=== PATIENT | male | born 1960 | race American Indian/Alaskan Native ===

== ENCOUNTER 2016-08-25 18:13 | Emergency (ER) | payer MEDICARE ==
[2016-08-25 19:42] LABS: Basophils % (Auto) 0.9 % (0.0-1.8); Eosinophils % (Auto) 1.6 % (0.0-4.3); Hematocrit 37.1 % (35.5-45.6); Hemoglobin 12.5 gm/dl (11.8-15.2); Mean Corpuscular HGB Conc 34 % (32-34); Mean Corpuscular Hemoglobin 30 pg (28-32); Mean Corpuscular Volume 89 fl (84-94); Platelet Count 254 K/mm3 (140-440); Red Blood Count 4.15 M/mm3 (3.65-5.03); Red Cell Distribution Width 16.2 % (13.2-15.2); White Blood Count 9.3 K/mm3 (4.5-11.0)
--- NOTE | 2016-08-25 20:00 | Emergency Department Report ---
ED Headache HPI - General Chief Complaint: Dizziness Stated Complaint: BLURRED VISION/DIZZINESS/WEAKNESS Time Seen by Provider: 08/25/16 19:28 - History of Present Illness Initial Comments: 56-year-old male with history of hypertension, diabetes, prior CVA pursuing today because of bifrontal headache is gone on for one week. Patient states his had headaches in the past and usually seems to improve with medication. This time it does not improved. He has no associated nausea or vomiting, chest pain, shortness breath, palpitations but does complain of some lightheadedness. He's had a prior surgery in his left hip and is complaining about some intermittent numbness in his left lower leg that seems improved with ambulating. Allergies/Adverse Reactions: Allergies Sulfa (Sulfonamide Antibiotics) Allergy (Intermediate, Verified 08/25/16 19:18) Hives codeine Allergy (Verified 06/19/15 20:27) Hives Home Medications: Ambulatory Orders HYDROcodone/APAP 5-325 [Huxford 5/325] 1 each PO Q6HR PRN #20 tablet 06/20/15 Ondansetron [Zofran Odt] 4 mg PO Q6HR PRN #20 tab.rapdis 06/20/15 Amoxicillin/K Clav Tab [Augmentin 875 mg] 1 tab PO Q12HR #10 tab 08/25/16 Butalb/Acetamin/Caff 50-325-40 [Fioricet] 1 tab PO Q6HR PRN #10 tab 08/26/16 ED Review of Systems ROS: Stated complaint: BLURRED VISION/DIZZINESS/WEAKNESS Other details as noted in HPI Comment: All other systems reviewed and negative Constitutional: denies: chills, fever Respiratory: denies: cough Cardiovascular: denies: chest pain, palpitations, dyspnea on exertion Gastrointestinal: denies: nausea, vomiting Genitourinary: denies: dysuria Musculoskeletal: denies: back pain Skin: denies: rash Psychiatric: denies: anxiety ED Past Medical Hx - Past Medical History Previous Medical History?: Yes Hx Hypertension: Yes Hx CVA: Yes Hx Diabetes: Yes Additional medical history: Blood clot around heart - Surgical History Past Surgical History?: Yes Additional Surgical History: Left Hip surgery, Hernia repair - Social History Smoking Status: Current Every Day Smoker Substance Use Type: None - Medications Home Medications: Home Medications Medication Instructions Recorded Confirmed Last Taken Type HYDROcodone/APAP 5-325 [Huxford 1 each PO Q6HR PRN #20 tablet 06/20/15 Unknown Rx 5/325] Ondansetron [Zofran Odt] 4 mg PO Q6HR PRN #20 tab.rapdis 06/20/15 Unknown Rx Amoxicillin/K Clav Tab [Augmentin 1 tab PO Q12HR #10 tab 08/25/16 Unknown Rx 875 mg] Butalb/Acetamin/Caff 50-325-40 1 tab PO Q6HR PRN #10 tab 08/26/16 Unknown Rx [Fioricet] ED Physical Exam - General Limitations: No Limitations General appearance: alert, in no apparent distress - Head Head exam: Present: atraumatic - Eye Eye exam: Present: normal appearance - Respiratory Respiratory exam: Present: normal lung sounds bilaterally. Absent: respiratory distress, wheezes - Cardiovascular Cardiovascular Exam: Present: regular rate, normal rhythm - GI/Abdominal GI/Abdominal exam: Present: soft. Absent: distended, tenderness - Neurological Exam Neurological exam: Present: alert, oriented X3, CN II-XII intact. Absent: motor sensory deficit - Psychiatric Psychiatric exam: Present: normal affect ED Course Vital Signs 08/25/16 08/25/16 08/25/16 19:08 19:10 19:15 Temperature 98.4 F Pulse Rate 56 L 55 L 54 L Pulse Rate [ Lying] Pulse Rate [ Sitting] Pulse Rate [ Standing] Respiratory 22 19 15 Rate Blood Pressure 155/84 167/85 Blood Pressure [Lying] Blood Pressure [Sitting] Blood Pressure [Standing] O2 Sat by Pulse 100 97 98 Oximetry 08/25/16 08/25/16 08/25/16 19:20 19:26 19:30 Temperature Pulse Rate 59 L 57 L 54 L Pulse Rate [ 59 L Lying] Pulse Rate [ 62 Sitting] Pulse Rate [ 69 Standing] Respiratory 13 15 20 Rate Blood Pressure 167/85 167/85 167/85 Blood Pressure 156/89 [Lying] Blood Pressure 147/90 [Sitting] Blood Pressure 165/96 [Standing] O2 Sat by Pulse 100 100 100 Oximetry 08/25/16 08/25/16 08/25/16 19:36 19:40 19:45 Temperature Pulse Rate 57 L 58 L 57 L Pulse Rate [ Lying] Pulse Rate [ Sitting] Pulse Rate [ Standing] Respiratory 18 13 13 Rate Blood Pressure 161/91 161/91 153/94 Blood Pressure [Lying] Blood Pressure [Sitting] Blood Pressure [Standing] O2 Sat by Pulse 99 100 99 Oximetry 08/25/16 08/25/16 08/25/16 19:50 19:55 20:01 Temperature Pulse Rate 58 L 56 L 66 Pulse Rate [ Lying] Pulse Rate [ Sitting] Pulse Rate [ Standing] Respiratory 14 11 L 20 Rate Blood Pressure 165/96 153/94 Blood Pressure [Lying] Blood Pressure [Sitting] Blood Pressure [Standing] O2 Sat by Pulse 100 100 99 Oximetry 08/25/16 08/25/16 08/25/16 21:20 22:02 22:30 Temperature Pulse Rate Pulse Rate [ Lying] Pulse Rate [ Sitting] Pulse Rate [ Standing] Respiratory 20 Rate Blood Pressure 165/96 158/89 Blood Pressure [Lying] Blood Pressure [Sitting] Blood Pressure [Standing] O2 Sat by Pulse 98 99 Oximetry 08/25/16 08/25/16 23:00 23:31 Temperature Pulse Rate 62 Pulse Rate [ Lying] Pulse Rate [ Sitting] Pulse Rate [ Standing] Respiratory 17 Rate Blood Pressure 148/96 164/89 Blood Pressure [Lying] Blood Pressure [Sitting] Blood Pressure [Standing] O2 Sat by Pulse 98 98 Oximetry - Reevaluation(s) Reevaluation #1: 08/25/16 23:51 Patient's symptoms completely resolved, no more headache, CT of the head does show a old infarct as well as acute sinusitis. Repeating EKG right now. Troponin level was negative and other labs were unremarkable. Given that the patient had 2 weeks symptoms will get the patient antibiotics. Reevaluation #2: 08/26/16 00:09 Repeat P EKG shows no significant changes, does not appear to have any significant ST elevations, condition is stable for discharge. - Consultations Consultation #1: 08/25/16 19:[address] Lockwood, materials analyst web content writer, I discussed with him the patient's presentation, exam and EKG. I sent him a copy of EKG. 08/25/16 19:59 Dr. Lockwood called back and states he was underwhelmed by the EKG. Patient also has no chest pain so will not call STEMI. ED Medical Decision Making - Lab Data Result diagrams: 08/25/16 19:37 08/25/16 19:36 - Medical Decision Making EKG shows some J-point elevation in V2, V3, inferior leads seem to have a subtle possible ST elevation without any clear reciprocal ST depression IV, labs, CT of head, chest x-ray Critical care attestation.: If time is entered above; I have spent that time in minutes in the direct care of this critically ill patient, excluding procedure time. ED Disposition Clinical Impression: Sphenoid sinusitis Qualifiers: Chronicity: acute Recurrence: not specified as recurrent Qualified Code(s): J01.30 - Acute sphenoidal sinusitis, unspecified Disposition: DISCHARGED TO HOME OR SELFCARE Is pt being admited?: No Does the pt Need Aspirin: No Condition: Stable Instructions: Sinusitis (ED), Acute Headache (ED) Additional Instructions: Please follow up with the primary care physician in the next 3-5 days. Please also make a follow-up appointment with your materials analyst within the next week. Return to the emergency room immediately if your symptoms worsen significantly or you develop any new symptoms. Prescriptions: Amoxicillin/K Clav Tab [Augmentin 875 mg] 1 tab PO Q12HR #10 tab Butalb/Acetamin/Caff 50-325-40 [Fioricet] 1 tab PO Q6HR PRN #10 tab PRN Reason: Headache Referrals: LILLY OTTO MD [Primary Care Provider] - 3-5 Days Time of Disposition: 00:10
[2016-08-25] MEDS ORDERED: FIORICET PO ONE (20:03)
[2016-08-25 20:28] LABS: Alanine Aminotransferase 7 units/L (7-56); Albumin 3.4 g/dL (3.9-5); Albumin/Globulin Ratio 1.1 %; Alkaline Phosphatase 72 units/L (35-129); Anion Gap 19 mmol/L; BUN/Creatinine Ratio 19.09; Blood Urea Nitrogen 21 mg/dL (9-20); Calcium 8.6 mg/dL (8.4-10.2); Carbon Dioxide 20 mmol/L (22-30); Chloride 100.2 mmol/L (98-107); Glucose 75 mg/dL (75-100); Potassium 5.4 mmol/L (3.6-5.0); Sodium 134 mmol/L (137-145); Total Protein 6.4 g/dL (6.3-8.2)
--- NOTE | 2016-08-25 20:47 | XRay Report ---
FINAL REPORT EXAM: XR CHEST 1V AP HISTORY: ekg changes TECHNIQUE: upright single view chest PRIORS: None. FINDINGS: Cardiac and mediastinal contours are unremarkable. No focal pulmonary infiltrate is identified. No pleural fluid collection seen. Pulmonary vasculature is unremarkable. IMPRESSION: Negative single-view chest
[2016-08-25] MEDS ORDERED: D5/0.45NS 1,000 ML IV SCH (21:00)
[2016-08-25 21:09] LABS: Bilirubin,Urine NEG (Negative); Blood,Urine NEG (Negative); Ketones,Urine NEG (Negative); Leukocyte Esterase,Urine NEG (Negative); Nitrite,Urine NEG (Negative); Urobilinogen,Urine < 2.0 mg/dL (<2.0); WBC,Urine < 1.0 /HPF (0.0-6.0)
--- NOTE | 2016-08-25 21:59 | Cat Scan Report ---
FINAL REPORT EXAM: CT HEAD/BRAIN WO CON HISTORY: headache, prior cva TECHNIQUE: CT head without contrast PRIORS: None. FINDINGS: No acute intra-axial or extra-axial hemorrhage is identified. There is no evidence of midline shift or mass effect. There is generalized prominence of ventricles and sulci largely frontal consistent with moderate parenchymal volume loss. There is more focal hypodensity and volume loss within the right frontal lobe consistent with remote infarct. Fernandes-white matter differentiation is intact. No acute parenchymal abnormalities seen. There are patchy and confluent hypodensities within the supratentorial white matter. Bony calvarium is grossly intact. There is fluid level present within the sphenoid sinus on the right IMPRESSION: Chronic small vessel white matter ischemic change Remote right frontal infarct parenchymal volume loss largely involving the frontal lobes Sphenoid sinusitis which appears acute
[2016-08-26 00:50] VITALS: BP 155/89
== END 2016-08-26 00:45 | disposition home or self-care (01) ==
LOC: ED 18:13
DX: J01.30 Acute sphenoidal sinusitis, unspecified (principal); I10 Essential (primary) hypertension; E11.9 Type 2 diabetes mellitus without complications; F17.200 Nicotine dependence, unspecified, uncomplicated; Z86.73 Personal history of transient ischemic attack (TIA), and cerebral infarction without residual deficits; Z88.2 Allergy status to sulfonamides; Z88.6 Allergy status to analgesic agent
CPT/HCPCS: 36415; 70450; 71010; 80053; 81001; 82962; 83880; 84484; 85025; 93005; 93010; 96360

== ENCOUNTER 2016-11-01 06:47 | Day surgery (SDC) | payer MEDICARE ==
[2016-11-01] MEDS ORDERED: XYLOCAINE 1%/ EPI 1:100,000 INFILTRATI ONE ×2 (11:49→12:38)
[2016-11-01] MEDS: VIGAMOX OD SCH ×3 (11:54→12:06)
[2016-11-01] MEDS: TETRACAINE 0.5% OD SCH ×3 (11:54→12:05)
--- NOTE | 2016-11-01 12:10 | Anesthesia Day of Surgery ---
Anesthesia Day of Surgery - Day of Surgery Patient Examined: Yes Patient H&P Reviewed: Yes Patient is NPO: Yes Beta Blockers: Yes
--- NOTE | 2016-11-01 12:10 | Anesthesia Consultation ---
Anesthesia Consult and Med Hx Date of service: 11/01/16 - Airway Anesthetic Teeth Evaluation: Poor ROM Head & Neck: Adequate Mental/Hyoid Distance: Adequate Mallampati Class: Class II Intubation Access Assessment: Probably Good - Pulmonary Exam CTA: Yes - Cardiac Exam Cardiac Exam: RRR - Pre-Operative Health Status ASA Pre-Surgery Classification: ASA3 Proposed Anesthetic Plan: MAC - Pulmonary Hx Smoking: Yes (SINCE AGE 17 1PKG LASTS 2 DAYS) - Cardiovascular System Hx Hypertension: Yes - Central Nervous System CVA: Yes (SEE ABOVE) - Other Systems Hx Cancer: No
[2016-11-01] MEDS ORDERED: VERSED ONE (12:28)
[2016-11-01] MEDS ORDERED: SUBLIMAZE ONE ×2 (12:28)
--- NOTE | 2016-11-01 13:02 | Short Stay Summary ---
Short Stay Documentation Date of service: 11/01/16 - History H&P: obtained from office - Allergies and Medications Current Medications: Allergies codeine Allergy (Verified 06/19/15 20:27) Hives Active Medications Moxifloxacin HCl (Vigamox) 1 drops OD Q5MIN KARLEY Stop: 11/01/16 23:59 Last Admin: 11/01/16 12:06 Dose: 1 drops Tetracaine HCl (Tetracaine 0.5%) 1 drops OD Q5M KARLEY Stop: 11/01/16 23:59 Last Admin: 11/01/16 12:05 Dose: 1 drops - Brief post op/procedure progress note Date of procedure: 11/01/16 Pre-op diagnosis: pyogenic granuloma right eye Post-op diagnosis: same Procedure: Excision of pyogenic granuloma right eye Anesthesia: MAC, local Surgeon: INDIGO PABLO Estimated blood loss: minimal Specimen disposition: to lab (pyogenic granuloma) Condition: stable - Disposition Condition at discharge: Good Disposition: DC-01 TO HOME OR SELFCARE - Discharge Diagnoses (1) Pyogenic granuloma of right conjunctiva Status: Resolved Short Stay Discharge Plan Follow up with: LILLY OTTO MD [Primary Care Provider] - 7 Days
--- NOTE | 2016-11-01 13:05 | Operative Report ---
Operative Report Operative Report: PREOPERATIVE DIAGNOSIS: Pyogenic granuloma the conjunctiva right eye POSTOPERATIVE DIAGNOSIS: same OPERATIVE PROCEDURE: Excision of pyogenic granuloma right eye SURGEON: aPtricia Hernández M.D. ELECTRIC TAPE SLITTER SURGEON: none ANESTHESIA: Monitored anesthesia care OWNER/PHOTOGRAPHER: COMPLICATIONS: None ALLERGIES: Codeine PROGNOSIS: Excellent INDICATIONS FOR SURGERY: Distortion of vision from the lesion. Without treatment , permanent visual loss is expected. OPERATIVE REPORT: The patient was taken into the preoperative area and then sedated and monitored by Anesthesia. The patient was prepped by applying a Betadine scrub to the periorbital area, the adjacent cheek, and the forehead. The prepped areas were dried with sterile gauze. The patient was draped, and a speculum was placed between the eyelids. 2% lidocaine was injected below the body of the granuloma. A cut-down was made through the body of the granuloma to bare sclera. The dissection was then carried towards the limbus, elevating up the granuloma. Moderate bleeding was encountered and treated with cautery. The granuloma was densely scarred into the underlying stroma, making the dissection process difficult to perform. A superficial dissection plane was made in a few areas. The mass of fibrous growth was then excised from the limbus. MEDICATIONS APPLIED AT END OF SURGERY: DISCHARGE SUMMARY: The patient was released in stable condition. The patient and those with the patient were given a written sheet of postoperative instructions and counseling on any abnormal laboratory studies. They are to call immediately for difficulties.
[2016-11-01] MEDS ORDERED: PRED FORTE 1% OD ONE (13:13)
--- NOTE | 2016-11-01 13:26 | Post Anesthesia Evaluation ---
- Post Anesthesia Evaluation Patient Participated: Yes Airway Patent: Yes Stable Respiratory Function: Yes Nausea/Vomiting: No Temp > 96.8F: Yes Pain Manageable: Yes Adequeate Hydration: Yes Anesthesia Complications: No Block Receding Appropriately: Not Applicable Patient on Ventilator: No
[2016-11-01] MEDS ORDERED: PRED FORTE 1% OD SCH (14:00)
[2016-11-01 14:54] VITALS: BP 151/74
== END 2016-11-01 13:51 | disposition home or self-care (01) ==
LOC: OR 06:47
DX: L98.0 Pyogenic granuloma (principal); D18.09 Hemangioma of other sites; M19.90 Unspecified osteoarthritis, unspecified site; E11.9 Type 2 diabetes mellitus without complications; I10 Essential (primary) hypertension; F17.210 Nicotine dependence, cigarettes, uncomplicated; Z91.040 Latex allergy status; Z88.5 Allergy status to narcotic agent; Z88.2 Allergy status to sulfonamides; Z88.8 Allergy status to other drugs, medicaments and biological substances; Z86.73 Personal history of transient ischemic attack (TIA), and cerebral infarction without residual deficits
CPT/HCPCS: 68130; 82962; 88305; J2250; J3010; 88304

== ENCOUNTER 2016-11-15 09:27 | Day surgery (SDC) | payer MEDICARE ==
[~2016-11-15 09:27] MED LIST: TETRACAINE 0.5% OS SCH
[2016-11-15] MEDS: VIGAMOX OS SCH ×3 (10:25→10:40)
[2016-11-15] MEDS: AK-Dilate OS SCH ×3 (10:25→10:40)
[2016-11-15] MEDS: MYDRIACYL OS SCH ×3 (10:25→10:40)
--- NOTE | 2016-11-15 10:36 | Anesthesia Consultation ---
Anesthesia Consult and Med Hx Date of service: 11/15/16 - Airway Anesthetic Teeth Evaluation: Poor ROM Head & Neck: Adequate Mental/Hyoid Distance: Adequate Mallampati Class: Class II Intubation Access Assessment: Probably Good - Pulmonary Exam CTA: Yes - Cardiac Exam Cardiac Exam: RRR - Pre-Operative Health Status ASA Pre-Surgery Classification: ASA3 Proposed Anesthetic Plan: General - Pulmonary Hx Smoking: Yes (SINCE AGE 17 1PKG LASTS 2 DAYS) - Cardiovascular System Hx Hypertension: Yes - Central Nervous System CVA: Yes (SEE ABOVE) - Endocrine Hx Non-Insulin Dependent Diabetes: Yes - Other Systems Hx Cancer: No - Additional Comments Anesthesia Medical History Comments: NAC previously. Right side weakness from CVA, which was about 10 years ago. Poor dentition.
--- NOTE | 2016-11-15 10:39 | Anesthesia Day of Surgery ---
Anesthesia Day of Surgery - Day of Surgery Patient Examined: Yes Patient H&P Reviewed: Yes Patient is NPO: Yes
[2016-11-15] MEDS ORDERED: SUBLIMAZE ONE (10:59)
[2016-11-15] MEDS ORDERED: VERSED ONE (10:59)
--- NOTE | 2016-11-15 11:49 | Short Stay Summary ---
Short Stay Documentation Date of service: 11/15/16 - History H&P: obtained from office - Allergies and Medications Current Medications: Allergies codeine Allergy (Verified 06/19/15 20:27) Hives latex Adverse Reaction (Intermediate, Verified 11/01/16 14:43) Hives antioxidant multivitamin combo. no. [From I-Caps] Adverse Reaction (Verified 14:41) Rash docosahexanoic acid [From I-Caps] Adverse Reaction (Verified 11/01/16 14:43) Rash PT STATES HANDS BLISTERED, RASH, ITCHING eicosapentaenoic acid [From I-Caps] Adverse Reaction (Verified 11/01/16 14:41) Rash lutein [From I-Caps] Adverse Reaction (Verified 11/01/16 14:41) Rash omega-3 fatty acids [From I-Caps] Adverse Reaction (Verified 11/01/16 14:41) Rash Sulfa (Sulfonamide Antibiotics) Adverse Reaction (Verified 11/01/16 14:41) Rash zeaxanthin [From I-Caps] Adverse Reaction (Verified 11/01/16 14:41) Rash Home Medications Medication Instructions Recorded Confirmed Last Taken Type Clopidogrel Bisulfate [Plavix] 75 mg PO DAILY 11/01/16 11/09/16 11/09/16 History Colesevelam [Welchol] 625 mg PO AC 11/01/16 11/09/16 11/14/16 History Esomeprazole Magnesium [NexIUM] 40 mg PO QDAY 11/01/16 11/09/16 11/14/16 History Ezetimibe [Zetia] 10 mg PO DAILY 11/01/16 11/09/16 11/14/16 History Gabapentin [Neurontin] 300 mg PO Q8HR 11/01/16 11/09/16 11/14/16 History Latanoprost 0.005% 1 drop OU DAILY 11/01/16 11/09/16 11/14/16 History Metoprolol [Lopressor] 25 mg PO BID 11/01/16 11/09/16 11/14/16 23:00 History amLODIPine [Norvasc] 5 mg PO DAILY 11/01/16 11/15/16 11/14/16 23:00 History metFORMIN 1,000 mg PO BID 11/01/16 11/09/16 11/14/16 History Active Medications Moxifloxacin HCl (Vigamox) 1 drops OS Q5MIN KARLEY Stop: 11/17/16 06:01 Last Admin: 11/15/16 10:40 Dose: 1 drops Phenylephrine HCl (Ak-Dilate) 1 drops OS Q5MIN KARLEY Stop: 11/17/16 06:01 Last Admin: 11/15/16 10:40 Dose: 1 drops Prednisolone Acetate (Pred Forte 1%) 1 drops OS QID KARLEY Tetracaine HCl (Tetracaine 0.5%) 1 drops OS ONCE KARLEY Stop: 11/15/16 23:59 Last Admin: 11/15/16 10:25 Dose: 1 drops Tropicamide (Mydriacyl) 1 drops OS Q5MIN KARLEY Stop: 11/17/16 06:01 Last Admin: 11/15/16 10:40 Dose: 1 drops - Brief post op/procedure progress note Date of procedure: 11/15/16 Pre-op diagnosis: left cataract Procedure: Phacoemulsification with intraocular lens insertion left eye Anesthesia: MAC Surgeon: INDIGO PABLO Estimated blood loss: none Pathology: none Condition: stable - Disposition Condition at discharge: Good Disposition: DC-01 TO HOME OR SELFCARE - Discharge Diagnoses (1) Cataract Status: Resolved Qualifiers: Cataract type: age-related Age-related cataract type: nuclear Infantile/ juvenile cataract type: I Traumatic cataract type: T Complicated cataract type: C Secondary cataract type: S Laterality: left Qualified Code(s): H25.12 - Age-related nuclear cataract, left eye Short Stay Discharge Plan Follow up with: LILLY OTTO MD [Primary Care Provider] - 7 Days
--- NOTE | 2016-11-15 11:49 | Operative Report ---
Operative Report Operative Report: PATIENT'S NAME: DATE OF : DATE OF SURGERY: 11/15/2016 PREOPERATIVE DIAGNOSIS: Cataract left eye POSTOPERATIVE DIAGNOSIS: Same OPERATIVE PROCEDURE: Phacoemulsification with intraocular lens implantation, left eye SURGEON: Patricia Hernández M.D. HOSPITAL UNIT CLERK SURGEON: Deirdre Lens: [id number] 21.5 D ANESTHESIA: Monitored anesthesia care in combination with topical and intracameral anesthesia because of the established specific risk of reflux, arrhythmias, or anxiety attacks associated with ocular manipulation, as well as the difficulty of the general repair mechanic to manage such potentially catastrophic events while simultaneously attempting to complete the surgical procedure and was deemed necessary for the patient's safety to have an Impregnator Helper present during the procedure whenever possible. An Impregnator Helper was utilized to regulate the intravenous sedation of the patient so the patient was cooperative yet not asleep in order for the patient to successfully maintain fixation of the eye on the operating light of the microscope. COMPLICATIONS: No surgical complications No blood loss. ALLERGIES: Codeine latex multivitamin, PROGNOSIS: Excellent INDICATIONS FOR SURGERY: The patient is undergoing surgery in the hopes of eliminating or improving these visual difficulties. PROCEDURE: After arriving at the surgery center, the patient was given topical anesthetic and dilating drops, as noted in the record. The patient was then taken into the operating room and given more anesthetic drops. The eyelids , lashes, and lid margins were scrubbed with Betadine solution, and the patient was draped. The Nurse Impregnator Helper administered IV sedation and monitored the patient during the procedure. The eye was then fixated with a 0.12, and a stab incision was made in the peripheral clear cornea into the anterior chamber. This was made on my left side. Viscoelastic was next used to fill the anterior chamber. The eye was once again fixated with the 0.12 forceps and a keratome was used make an incision in clear cornea peripherally on my right hand side temporally. The capsule forceps were used to open the central anterior capsule and then make a continuous round capsulotomy. Hydrodissection was carried out utilizing a cannula and balanced salt solution to delineate the cortical material from the capsule and the nucleus from the cortical material. The phaco tip was introduced into the eye and used to remove the anterior cortical material in the area of the capsulotomy. Then the phaco tip was buried into the nucleus, and a chopping instrument was introduced into the eye and used to provide countertraction in the nucleus between this instrument and the phaco tip fracturing the nucleus. This procedure was repeated multiple times, providing multiple small segments of the lens, and then the phaco tip was used to remove each of these segments. An I/A tip was then used to remove the remaining cortex. The anterior chamber was refilled with viscoelastic. An one-piece, acrylic intraocular lens was then placed into an inserting cartridge. The tip of the inserting cartridge was introduced into the keratome incision and into the anterior chamber. The implant was gently advanced through the cartridge and into the eye, where it unfolded, and both haptics were placed in the capsular bag, where it centered nicely and appeared to be well fixated. After placement of the intraocular lens, the I~and~A handpiece was placed back into the eye and used to remove the viscoelastic, including viscoelastic that was behind the optic of the intraocular lens. The anterior chamber was then filled with balanced salt solution, and hydration of the wound was used to cause swelling of the wound and more appropriate watertight closure. When the wound was found to be firm, the patient was asked to comment on how bright the light was. If there was no light perception at all or if the light was substantially dimmer than during the rest of the surgery, the amount of fluid in the eye was decompressed to lower the intraocular pressure until the patient could see the bright light again. This was done to avoid any damage or decreased blood flow to the optic nerve. MEDICATIONS APPLIED AT END OF SURGERY: One drop of Pred Forte and Vigamox The patient was given a shield to wear at night and was instructed not to rub or push on the eye. DISCHARGE SUMMARY: The patient was released in stable condition. The patient and those with the patient were given a written sheet of postoperative instructions and counseling on any abnormal laboratory studies. The patient is to see us tomorrow for follow-up in the office and is to call immediately for any difficulties. Patricia Hernández M.D. Date
[2016-11-15] MEDS ORDERED: PRED FORTE 1% ONE (11:57)
[2016-11-15 13:29] VITALS: BP 132/74
[2016-11-15] MEDS ORDERED: PRED FORTE 1% OS SCH (14:00)
--- NOTE | 2016-11-15 17:27 | Post Anesthesia Evaluation ---
- Post Anesthesia Evaluation Patient Participated: Yes Airway Patent: Yes Stable Respiratory Function: Yes Nausea/Vomiting: No Temp > 96.8F: Yes Pain Manageable: Yes Adequeate Hydration: Yes Anesthesia Complications: No
== END 2016-11-15 13:00 | disposition home or self-care (01) ==
LOC: OR 09:27
DX: E11.36 Type 2 diabetes mellitus with diabetic cataract (principal); M19.90 Unspecified osteoarthritis, unspecified site; I10 Essential (primary) hypertension; F17.210 Nicotine dependence, cigarettes, uncomplicated; Z86.73 Personal history of transient ischemic attack (TIA), and cerebral infarction without residual deficits; Z88.5 Allergy status to narcotic agent; Z88.2 Allergy status to sulfonamides; Z79.01 Long term (current) use of anticoagulants; Z88.8 Allergy status to other drugs, medicaments and biological substances; Z91.040 Latex allergy status; Z79.84 Long term (current) use of oral hypoglycemic drugs; Z79.899 Other long term (current) drug therapy
CPT/HCPCS: 66984; 82962; J2250; J3010; V2632

== ENCOUNTER 2016-11-22 06:26 | Day surgery (SDC) | payer MEDICARE ==
[2016-11-22] MEDS ORDERED: TETRACAINE 0.5% OD PRN (07:00)
[2016-11-22] MEDS ORDERED: NACL BACTERIOSTATIC INFILTRATI ONE (07:28)
[2016-11-22] MEDS: MYDRIACYL OD SCH ×3 (07:34→07:52)
[2016-11-22] MEDS: VIGAMOX OD SCH ×3 (07:34→07:52)
[2016-11-22] MEDS: AK-Dilate OD SCH ×3 (07:34→07:52)
--- NOTE | 2016-11-22 07:50 | Anesthesia Consultation ---
Anesthesia Consult and Med Hx Date of service: 11/22/16 - Airway Anesthetic Teeth Evaluation: Poor ROM Head & Neck: Adequate Mental/Hyoid Distance: Adequate Mallampati Class: Class II Intubation Access Assessment: Probably Good - Pulmonary Exam CTA: Yes - Cardiac Exam Cardiac Exam: RRR - Pre-Operative Health Status ASA Pre-Surgery Classification: ASA3 Proposed Anesthetic Plan: MAC - Pulmonary Hx Smoking: Yes (SINCE AGE 17 1PKG LASTS 2 DAYS) - Cardiovascular System Hx Hypertension: Yes - Central Nervous System Hx Neuromuscular Disorder: Yes (Right side weakness from CVA, >10 years ago) CVA: Yes Hx Psychiatric Problems: No - Gastrointestinal Hx Gastroesophageal Reflux Disease: No - Endocrine Hx Non-Insulin Dependent Diabetes: Yes - Hematic Hx Anemia: No Hx Sickle Cell Disease: No - Other Systems Hx Alcohol Use: No Hx Substance Use: No Hx Cancer: No Hx Obesity: No
--- NOTE | 2016-11-22 07:51 | Anesthesia Day of Surgery ---
Anesthesia Day of Surgery - Day of Surgery Patient Examined: Yes Patient H&P Reviewed: Yes Patient is NPO: Yes
[2016-11-22] MEDS ORDERED: SUBLIMAZE ONE (08:14)
[2016-11-22] MEDS ORDERED: VERSED ONE (08:14)
--- NOTE | 2016-11-22 09:19 | Operative Report ---
Operative Report Operative Report: PATIENT'S NAME: DATE OF : DATE OF SURGERY: 11/22/2016 PREOPERATIVE DIAGNOSIS: Cataract right eye POSTOPERATIVE DIAGNOSIS: Same OPERATIVE PROCEDURE: Phacoemulsification with intraocular lens implantation, right eye SURGEON: Patricia Hernández M.D. SENIOR OUTSIDE SALES REPRESENTATIVE SURGEON: Deirdre Lens: [id number] 21.0 D ANESTHESIA: Monitored anesthesia care in combination with topical and intracameral anesthesia because of the established specific risk of reflux, arrhythmias, or anxiety attacks associated with ocular manipulation, as well as the difficulty of the donor services team leader to manage such potentially catastrophic events while simultaneously attempting to complete the surgical procedure and was deemed necessary for the patient's safety to have an Digital Sales Executive present during the procedure whenever possible. An Digital Sales Executive was utilized to regulate the intravenous sedation of the patient so the patient was cooperative yet not asleep in order for the patient to successfully maintain fixation of the eye on the operating light of the microscope. COMPLICATIONS: No surgical complications No blood loss. ALLERGIES: Latex codeine PROGNOSIS: Excellent INDICATIONS FOR SURGERY: The patient is undergoing surgery in the hopes of eliminating or improving these visual difficulties. PROCEDURE: After arriving at the surgery center, the patient was given topical anesthetic and dilating drops, as noted in the record. The patient was then taken into the operating room and given more anesthetic drops. The eyelids , lashes, and lid margins were scrubbed with Betadine solution, and the patient was draped. The Nurse Digital Sales Executive administered IV sedation and monitored the patient during the procedure. The eye was then fixated with a 0.12, and a stab incision was made in the peripheral clear cornea into the anterior chamber. This was made on my left side. Viscoelastic was next used to fill the anterior chamber. The eye was once again fixated with the 0.12 forceps and a keratome was used make an incision in clear cornea peripherally on my right hand side temporally. The capsule forceps were used to open the central anterior capsule and then make a continuous round capsulotomy. Hydrodissection was carried out utilizing a cannula and balanced salt solution to delineate the cortical material from the capsule and the nucleus from the cortical material. The phaco tip was introduced into the eye and used to remove the anterior cortical material in the area of the capsulotomy. Then the phaco tip was buried into the nucleus, and a chopping instrument was introduced into the eye and used to provide countertraction in the nucleus between this instrument and the phaco tip fracturing the nucleus. This procedure was repeated multiple times, providing multiple small segments of the lens, and then the phaco tip was used to remove each of these segments. An I/A tip was then used to remove the remaining cortex. The anterior chamber was refilled with viscoelastic. An one-piece, acrylic intraocular lens was then placed into an inserting cartridge. The tip of the inserting cartridge was introduced into the keratome incision and into the anterior chamber. The implant was gently advanced through the cartridge and into the eye, where it unfolded, and both haptics were placed in the capsular bag, where it centered nicely and appeared to be well fixated. After placement of the intraocular lens, the I~and~A handpiece was placed back into the eye and used to remove the viscoelastic, including viscoelastic that was behind the optic of the intraocular lens. The anterior chamber was then filled with balanced salt solution, and hydration of the wound was used to cause swelling of the wound and more appropriate watertight closure. When the wound was found to be firm, the patient was asked to comment on how bright the light was. If there was no light perception at all or if the light was substantially dimmer than during the rest of the surgery, the amount of fluid in the eye was decompressed to lower the intraocular pressure until the patient could see the bright light again. This was done to avoid any damage or decreased blood flow to the optic nerve. MEDICATIONS APPLIED AT END OF SURGERY: One drop of Pred Forte and Vigamox The patient was given a shield to wear at night and was instructed not to rub or push on the eye. DISCHARGE SUMMARY: The patient was released in stable condition. The patient and those with the patient were given a written sheet of postoperative instructions and counseling on any abnormal laboratory studies. The patient is to see us tomorrow for follow-up in the office and is to call immediately for any difficulties. Patricia Hernández M.D. Date
--- NOTE | 2016-11-22 09:20 | Short Stay Summary ---
Short Stay Documentation Date of service: 11/22/16 - History H&P: obtained from office - Allergies and Medications Current Medications: Allergies latex Allergy (Intermediate, Verified 11/21/16 11:45) Hives antioxidant multivitamin combo. no. [From I-Caps] Allergy (Verified 11/21/16 11: 45) Rash codeine Allergy (Verified 06/19/15 20:27) Hives docosahexanoic acid [From I-Caps] Allergy (Verified 11/21/16 11:45) Rash PT STATES HANDS BLISTERED, RASH, ITCHING eicosapentaenoic acid [From I-Caps] Allergy (Verified 11/21/16 11:45) Rash lutein [From I-Caps] Allergy (Verified 11/21/16 11:45) Rash omega-3 fatty acids [From I-Caps] Allergy (Verified 11/21/16 11:45) Rash Sulfa (Sulfonamide Antibiotics) Allergy (Verified 11/21/16 11:45) Rash zeaxanthin [From I-Caps] Allergy (Verified 11/21/16 11:45) Rash Home Medications Medication Instructions Recorded Confirmed Last Taken Type Clopidogrel Bisulfate [Plavix] 75 mg PO DAILY 11/01/16 11/21/16 11/09/16 History Colesevelam [Welchol] 625 mg PO AC 11/01/16 11/21/16 11/14/16 History Esomeprazole Magnesium [NexIUM] 40 mg PO QDAY 11/01/16 11/21/16 11/14/16 History Ezetimibe [Zetia] 10 mg PO DAILY 11/01/16 11/21/16 11/14/16 History Gabapentin [Neurontin] 300 mg PO Q8HR 11/01/16 11/21/16 11/14/16 History Latanoprost 0.005% 1 drop OU DAILY 11/01/16 11/21/16 11/14/16 History Metoprolol [Lopressor] 25 mg PO BID 11/01/16 11/21/16 11/14/16 23:00 History amLODIPine [Norvasc] 5 mg PO DAILY 11/01/16 11/21/16 11/14/16 23:00 History metFORMIN 1,000 mg PO BID 11/01/16 11/21/16 11/14/16 History Active Medications Moxifloxacin HCl (Vigamox) 1 drops OD Q5MIN [facility] Stop: 11/24/16 07:01 Last Admin: 11/22/16 07:52 Dose: 1 drops Phenylephrine HCl (Ak-Dilate) 1 drops OD Q5MIN [facility] Stop: 11/24/16 07:01 Last Admin: 11/22/16 07:52 Dose: 1 drops Prednisolone Acetate (Pred Forte 1%) 1 drops OD QID [facility] Tetracaine HCl (Tetracaine 0.5%) 1 drops OD Q5M PRN PRN Reason: Analgesia Last Admin: 11/22/16 07:34 Dose: 1 drops Tropicamide (Mydriacyl) 1 drops OD Q5MIN [facility] Stop: 11/24/16 07:01 Last Admin: 11/22/16 07:52 Dose: 1 drops - Brief post op/procedure progress note Date of procedure: 11/22/16 Pre-op diagnosis: right cataract Post-op diagnosis: same Procedure: Phacoemulsification with intraocular lens insertion right eye Anesthesia: MAC Surgeon: INDIGO PABLO Pathology: none Condition: stable - Disposition Condition at discharge: Good Disposition: DC-01 TO HOME OR SELFCARE - Discharge Diagnoses (1) Cataract Status: Resolved Qualifiers: Cataract type: age-related Age-related cataract type: nuclear Infantile/ juvenile cataract type: I Traumatic cataract type: T Complicated cataract type: C Secondary cataract type: S Laterality: right Qualified Code(s): H25.11 - Age-related nuclear cataract, right eye Short Stay Discharge Plan Follow up with: LILLY OTTO MD [Primary Care Provider] - 7 Days Forms: [facility]
[2016-11-22] MEDS ORDERED: PRED FORTE 1% OD SCH (10:00)
[2016-11-22] MEDS ORDERED: MYDRIACYL OD SCH (10:00)
[2016-11-22 11:13] VITALS: BP 136/87
== END 2016-11-22 09:40 | disposition home or self-care (01) ==
LOC: OR 06:26
DX: E11.36 Type 2 diabetes mellitus with diabetic cataract (principal); I10 Essential (primary) hypertension; M19.90 Unspecified osteoarthritis, unspecified site; F17.210 Nicotine dependence, cigarettes, uncomplicated; Z86.73 Personal history of transient ischemic attack (TIA), and cerebral infarction without residual deficits; Z88.5 Allergy status to narcotic agent; Z88.2 Allergy status to sulfonamides; Z88.8 Allergy status to other drugs, medicaments and biological substances; Z91.040 Latex allergy status; Z79.01 Long term (current) use of anticoagulants; Z79.899 Other long term (current) drug therapy
CPT/HCPCS: 66984; 82962; J2250; J3010; V2632

== ENCOUNTER 2019-05-18 11:19 | Observation (INO) | payer MEDICARE ==
--- NOTE | 2019-05-18 11:47 | Emergency Department Report ---
Blank Doc - Documentation Documentation: 59-year-old male that presents with abdominal pain and n/v. This initial assessment/diagnostic orders/clinical plan/treatment(s) is/are subject to change based on patient's health status, clinical progression and re- assessment by fellow clinical providers in the ED. Further treatment and workup at subsequent clinical providers discretion. Patient/guardians urged not to elope from the ED as their condition may be serious if not clinically assessed and managed. Initial orders include: 1- Patient sent to [facility] for further evaluation and treatment 2- labs 3- UA
[2019-05-18 13:18] LABS: Albumin 3.4 g/dL (3.9-5); Calcium 9.1 mg/dL (8.4-10.2)
[2019-05-18 13:27] LABS: Basophils # (Auto) 0.1 K/mm3 (0.0-0.1); Basophils % (Auto) 0.6 % (0.0-1.8); Eosinophils # (Auto) 0.1 K/mm3 (0.0-0.4); Eosinophils % (Auto) 1.4 % (0.0-4.3); Hematocrit 39.4 % (35.5-45.6); Hemoglobin 13.2 gm/dl (11.8-15.2); Lymphocytes # (Auto) 2.7 K/mm3 (1.2-5.4); Lymphocytes % (Auto) 34.1 % (13.4-35.0); Mean Corpuscular HGB Conc 34 % (32-34); Mean Corpuscular Volume 90 fl (84-94); Monocytes # (Auto) 0.4 K/mm3 (0.0-0.8); Monocytes % (Auto) 5.4 % (0.0-7.3); Platelet Count 222 K/mm3 (140-440); Red Blood Count 4.39 M/mm3 (3.65-5.03)
[2019-05-18] MEDS ORDERED: ONDANSETRON 4 MG/2 ML INJ IV ONE (13:49)
[2019-05-18] MEDS ORDERED: FAMOTIDINE 20 MG/2 ML INJ IV ONE (13:49)
[2019-05-18] MEDS ORDERED: diphenhydrAMINE 50 MG/ML VIAL IV ONE (13:51)
[2019-05-18] MEDS ORDERED: MORPHINE 2 MG/1 ML INJ IV ONE (13:51)
[2019-05-18] MEDS ORDERED: SODIUM BICARB 8.4% 50 MEQ/50 ML SYRINGE IV ONE (15:17)
[2019-05-18] MEDS ORDERED: INSULIN REGULAR, HUMAN 100 UNITS/1 ML IV ONE (15:17)
[2019-05-18] MEDS ORDERED: SODIUM POLYSTYRENE 15 GM/60 ML ORAL LIQD PO ONE (15:17)
[2019-05-18] MEDS ORDERED: DEXTROSE 50% IN WATER (25GM) 50 ML SYRINGE IV ONE ×2 (15:17→18:33)
--- NOTE | 2019-05-18 15:17 | Cat Scan Report ---
CT ABDOMEN AND PELVIS WITHOUT CONTRAST HISTORY: Epigastric pain. COMPARISON: None TECHNIQUE: Routine abdominal and pelvic CT exam performed without contrast. Lack of intravenous cont rast limits evaluation of the vascular and solid organs.. All CT scans at this location are performed using CT dose reduction for ALARA by means of automated exposure control. FINDINGS: CT ABDOMEN: Lung Bases: No significant abnormality. Liver: No significant abnormality. Biliary: No significant abnormality. The gallbladder is normally distended with no stones. Normal luke e ducts. Spleen: No significant abnormality. Unenlarged. Pancreas: Pancreatic tail calcifications and moderate enlargement of the pancreatic duct (6 mm). No p eripancreatic fluid. No pancreatic pseudocyst. Adrenals: No significant abnormality. Kidneys: No significant abnormality. The renal collecting systems and ureters are nondilated. No urin patricia calculus. Lymphatics: No lymphadenopathy. Vasculature: Extensive calcification of the abdominal aorta and iliac arteries. Bowel/Peritoneum: No significant abnormality. No free air. No free fluid. Appendix not visualized. No pericecal inflammation. CT PELVIC: : No significant abnormality. Lymphatics: No lymphadenopathy. Osseous Structures: No aggressive appearing osseous lesions. Status post left hip replacement with no rmal appearance of the prosthesis. Additional Findings: None IMPRESSION: 1. No acute findings. 2. Chronic calcific pancreatitis involving the pancreatic tail. No signs of acute pancreatitis. 3. Constipation extensive stool throughout the colon. Signer Name: Hoang Barajas MD Signed: 05/18/2019 3:12 PM Workstation Name: [id number]
--- NOTE | 2019-05-18 16:31 | Emergency Department Report ---
ED General Adult HPI - General Chief complaint: Medical Clearance Stated complaint: HEART ISSUE Time Seen by Provider: 05/18/19 11:46 Source: patient Mode of arrival: Ambulatory Limitations: No Limitations - History of Present Illness Initial comments: Patient is a 59-year-old F [place] male with a past medical history of stage III renal disease diabetes hypertension and chronic pancreatitis who is presenting with epigastric pain. Patient states that he has had pain in abdomen since yesterday with nausea and vomiting. Pain radiates to his back. States pain is 8 out of 10 in severity. Patient was seen today by his solution consultant and was sent to the emergency department. Patient was seen by his document design specialist last week and had a slightly elevated potassium level. Patient been taking oral sodium bicarb. Patient states that his abdominal discomfort is worsened since taking this medication. - Related Data Home Medications Medication Instructions Recorded Confirmed Last Taken Clopidogrel Bisulfate [Plavix] 75 mg PO DAILY 11/01/16 11/21/16 11/21/16 Colesevelam [Welchol] 625 mg PO AC 11/01/16 11/21/16 11/21/16 Esomeprazole Magnesium [NexIUM] 40 mg PO QDAY 11/01/16 11/22/16 11/21/16 Ezetimibe [Zetia] 10 mg PO DAILY 11/01/16 11/21/16 11/21/16 Gabapentin [Neurontin] 300 mg PO Q8HR 11/01/16 11/21/16 11/21/16 Latanoprost 0.005% 1 drop OU DAILY 11/01/16 11/21/16 11/21/16 Metoprolol [Lopressor] 25 mg PO BID 11/01/16 11/21/16 11/21/16 amLODIPine 5 mg PO DAILY 11/01/16 11/21/16 11/21/16 metFORMIN 1,000 mg PO BID 11/01/16 11/21/16 11/21/16 Allergies Allergy/AdvReac Type Severity Reaction Status Date / Time latex Allergy Intermediate Hives Verified 11/21/16 11:45 antioxidant multivitamin Allergy Rash Verified 11/21/16 11:45 combo. no. [From I-Caps] codeine Allergy Hives Verified 06/19/15 20:27 docosahexanoic acid Allergy Rash Verified 11/21/16 11:45 [From I-Caps] eicosapentaenoic acid Allergy Rash Verified 11/21/16 11:45 [From I-Caps] lutein [From I-Caps] Allergy Rash Verified 11/21/16 11:45 omega-3 fatty acids Allergy Rash Verified 11/21/16 11:45 [From I-Caps] Sulfa (Sulfonamide Allergy Rash Verified 11/21/16 11:45 Antibiotics) zeaxanthin [From I-Caps] Allergy Rash Verified 11/21/16 11:45 ED Review of Systems ROS: Stated complaint: HEART ISSUE Other details as noted in HPI Comment: All other systems reviewed and negative ED Past Medical Hx - Past Medical History Previous Medical History?: Yes Hx Hypertension: Yes Hx CVA: Yes Hx Diabetes: Yes Hx GERD: Yes Hx Sickle Cell Disease: No Hx Arthritis: Yes (LEFT HIP SURGERY) Additional medical history: Blood clot around heart - Surgical History Past Surgical History?: Yes Additional Surgical History: Left Hip surgery, Hernia repair - Social History Smoking Status: Never Smoker Substance Use Type: None - Medications Home Medications: Home Medications Medication Instructions Recorded Confirmed Last Taken Type Clopidogrel Bisulfate [Plavix] 75 mg PO DAILY 11/01/16 11/21/16 11/21/16 History Colesevelam [Welchol] 625 mg PO AC 11/01/16 11/21/16 11/21/16 History Esomeprazole Magnesium [NexIUM] 40 mg PO QDAY 11/01/16 11/22/16 11/21/16 History Ezetimibe [Zetia] 10 mg PO DAILY 11/01/16 11/21/16 11/21/16 History Gabapentin [Neurontin] 300 mg PO Q8HR 11/01/16 11/21/16 11/21/16 History Latanoprost 0.005% 1 drop OU DAILY 11/01/16 11/21/16 11/21/16 History Metoprolol [Lopressor] 25 mg PO BID 11/01/16 11/21/16 11/21/16 History amLODIPine 5 mg PO DAILY 11/01/16 11/21/16 11/21/16 History metFORMIN 1,000 mg PO BID 11/01/16 11/21/16 11/21/16 History ED Physical Exam - General Limitations: No Limitations General appearance: alert, in no apparent distress - Head Head exam: Present: atraumatic, normocephalic - Eye Eye exam: Present: normal appearance - ENT ENT exam: Present: mucous membranes moist - Neck Neck exam: Present: normal inspection - Respiratory Respiratory exam: Present: normal lung sounds bilaterally. Absent: respiratory distress, wheezes, rales, rhonchi - Cardiovascular Cardiovascular Exam: Present: regular rate, normal rhythm, normal heart sounds. Absent: systolic murmur, diastolic murmur, rubs, gallop - GI/Abdominal GI/Abdominal exam: Present: soft, tenderness (Epigastric tenderness palpation), normal bowel sounds. Absent: distended, guarding, rebound - Rectal Rectal exam: Present: deferred - Extremities Exam Extremities exam: Present: normal inspection - Back Exam Back exam: Present: normal inspection - Neurological Exam Neurological exam: Present: alert, oriented X3 - Psychiatric Psychiatric exam: Present: normal affect, normal mood - Skin Skin exam: Present: warm, dry, intact, normal color. Absent: rash ED Course Vital Signs 05/18/19 05/18/19 11:32 15:00 Temperature 97.8 F Pulse Rate 54 L Respiratory 16 18 Rate Blood Pressure 174/82 O2 Sat by Pulse 98 98 Oximetry ED Medical Decision Making - Lab Data Result diagrams: 05/18/19 11:59 05/18/19 Unknown Lab Results 05/18/19 05/18/19 05/18/19 Range/Units 11:59 11:59 Unknown WBC 8.0 (4.5-11.0) K/mm3 RBC 4.39 (3.65-5.03) M/mm3 Hgb 13.2 (11.8-15.2) gm/dl Hct 39.4 (35.5-45.6) % MCV 90 (84-94) fl MCH 30 (28-32) pg MCHC 34 (32-34) % RDW 16.0 H (13.2-15.2) % Plt Count 222 (140-440) K/mm3 Lymph % (Auto) 34.1 (13.4-35.0) % [place] % (Auto) 5.4 (0.0-7.3) % Eos % (Auto) 1.4 (0.0-4.3) % Baso % (Auto) 0.6 (0.0-1.8) % Lymph # 2.7 (1.2-5.4) K/mm3 [place] # 0.4 (0.0-0.8) K/mm3 Eos # 0.1 (0.0-0.4) K/mm3 Baso # 0.1 (0.0-0.1) K/mm3 Seg Neutrophils % 58.5 (40.0-70.0) % Seg Neutrophils # 4.7 (1.8-7.7) K/mm3 Sodium 134 L (137-145) mmol/L Potassium 6.0 H 6.2 H* (3.6-5.0) mmol/L Chloride 103.5 (98-107) mmol/L Carbon Dioxide 18 L (22-30) mmol/L Anion Gap 19 mmol/L BUN 22 H (9-20) mg/dL Creatinine 1.8 H (0.8-1.5) mg/dL Estimated GFR 47 ml/min BUN/Creatinine Ratio 12 % Glucose 161 H (75-100) mg/dL Calcium 9.1 (8.4-10.2) mg/dL Total Bilirubin 0.20 (0.1-1.2) mg/dL AST 20 (5-40) units/L ALT 18 (7-56) units/L Alkaline Phosphatase 82 (35-129) units/L Total Protein 7.2 (6.3-8.2) g/dL Albumin 3.4 L (3.9-5) g/dL Albumin/Globulin Ratio 0.9 % Lipase 84 H (13-60) units/L - EKG Data -: EKG Interpreted by [place] EKG shows normal: sinus rhythm, axis, intervals, QRS complexes, ST-T waves Rate: bradycardia (51) - EKG Data Interpretation: normal EKG - Radiology Data Patient: ISIAH NEWBY MR#: [id number] : 1960 Acct:[id number] Age/Sex: 59 / M ADM Date: 05/18/19 Loc: ED Attending Dr: Ordering Physician: FLORECITA SHARP MD Date of Service: 05/18/19 Procedure(s): CT abdomen pelvis wo con Accession Number(s): [id number] cc: FLORECITA SHARP MD CT ABDOMEN AND PELVIS WITHOUT CONTRAST HISTORY: Epigastric pain. COMPARISON: None TECHNIQUE: Routine abdominal and pelvic CT exam performed without contrast. Lack of intravenous contrast limits evaluation of the vascular and solid organs.. All CT scans at t his location are performed using CT dose reduction for ALARA by means of automated exposure control. FINDINGS: CT ABDOMEN: Lung Bases: No significant abnormality. Liver: No significant abnormality. Biliary: No significant abnormality. The gallbladder is normally distended with no stones. Normal bile ducts. Spleen: No significant abnormality. Unenlarged. Pancreas: Pancreatic tail calcifications and moderate enlargement of the pancreatic duct (6 mm). No peripancreatic fluid. No pancreatic pseudocyst. Adrenals: No significant abnormality. Kidneys: No significant abnormality. The renal collecting systems and ureters are nondilated. No urinary calculus. Lymphatics: No lymphadenopathy. Vasculature: Extensive calcification of the abdominal aorta and iliac arteries. Bowel/Peritoneum: No significant abnormality. No free air. No free fluid. Appendix not visualized. No pericecal inflammation. CT PELVIC: : No significant abnormality. Lymphatics: No lymphadenopathy. Osseous Structures: No aggressive appearing osseous lesions. Status post left hip replacement with normal appearance of the prosthesis. Additional Findings: None IMPRESSION: 1. No acute findings. 2. Chronic calcific pancreatitis involving the pancreatic tail. No signs of acute pancreatitis. 3. Constipation extensive stool throughout the colon. Signer Name: Hoang Barajas MD Signed: 05/18/2019 3:12 PM Workstation Name: [id number] Transcribed By: REF Dictated By: HOANG BARAJAS MD Electronically Authenticated By: HOANG BARAJAS MD Signed Date/Time: 05/18/19 1512 - Medical Decision Making Patient is a 59-year-old gentleman who is presenting with epigastric discomfort. Patient does have a history of chronic pancreatitis is likely having some discomfort from his pancreatitis. Patient is potassium level is elevated at this time patient was given IV sodium bicarb Kayexalate insulin and D50. Patient will be admitted for observation Critical care attestation.: If time is entered above; I have spent that time in minutes in the direct care of this critically ill patient, excluding procedure time. ED Disposition Clinical Impression: Acute on chronic pancreatitis, Hyperkalemia Renal failure Qualifiers: Renal failure chronicity: chronic Chronic kidney disease stage: stage 3 (moderate) Qualified Code(s): N18.3 - Chronic kidney disease, stage 3 (moderate) Disposition: OP ADMIT IP TO THIS HOSP Is pt being admited?: Yes Does the pt Need Aspirin: No Condition: Stable Referrals: PRIMARY CARE, [Primary Care Provider] - 3-5 Days Time of Disposition: 16:44
[2019-05-18] MEDS ORDERED: ONDANSETRON 4 MG/2 ML INJ IV PRN (16:50)
[2019-05-18] MEDS ORDERED: ACETAMINOPHEN 325 MG TAB PO PRN (16:50)
[2019-05-18] MEDS ORDERED: ALBUTEROL 2.5 MG/3 ML NEBU IH PRN (16:50)
--- NOTE | 2019-05-18 16:50 | History and Physical Report ---
History of Present Illness Chief complaint: My stomach is hurting History of present illness: 59-year-old male with CKD, DM, HTN, chronic pancreatitis, GERD, severe malnutrition presents to ED for evaluation. Patient states that he has experienced pain in his abdomen over the past 1 day with persistent symptoms over the same timeframe. Patient states that his pain is 810/10, initially intermittent, but has been become constant, is associated with multiple episodes of vomiting as well as concomitant nausea, radiates to the back, is worsened with meals. 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 Patient transported to [facility] via private vehicle. Patient seen and evaluated in the emergency department. Lab and imaging studies reviewed. Patient found to have acute kidney injury with superimposed chronic kidney disease, hyperkalemia, metabolic acidosis, and abdominal pain secondary to chronic pancreatitis. Patient denies fever, chills, chest pain, palpitation, shortness of breath, bright red blood per rectum, ingestion of food/water from new or different sources, bright red blood per rectum, hemoptysis, skin rash, or recent ill contacts. Patient placed in observation status and admitted to medical floor. Patient treated with IV fluid resuscitation therapy and supportive care. Past History Past Medical History: diabetes, GERD, hypertension, stroke Past Surgical History: hernia repair, total hip replacement Social history: single. denies: smoking Family history: diabetes, hypertension Medications and Allergies Allergies Allergy/AdvReac Type Severity Reaction Status Date / Time latex Allergy Intermediate Hives Verified 11/21/16 11:45 antioxidant multivitamin Allergy Rash Verified 11/21/16 11:45 combo. no. [From I-Caps] codeine Allergy Hives Verified 06/19/15 20:27 docosahexanoic acid Allergy Rash Verified 11/21/16 11:45 [From I-Caps] eicosapentaenoic acid Allergy Rash Verified 11/21/16 11:45 [From I-Caps] lutein [From I-Caps] Allergy Rash Verified 11/21/16 11:45 omega-3 fatty acids Allergy Rash Verified 11/21/16 11:45 [From I-Caps] Sulfa (Sulfonamide Allergy Rash Verified 11/21/16 11:45 Antibiotics) zeaxanthin [From I-Caps] Allergy Rash Verified 11/21/16 11:45 Home Medications Medication Instructions Recorded Confirmed Last Taken Type Clopidogrel Bisulfate [Plavix] 75 mg PO DAILY 11/01/16 11/21/16 11/21/16 History Colesevelam [Welchol] 625 mg PO AC 11/01/16 11/21/16 11/21/16 History Esomeprazole Magnesium [NexIUM] 40 mg PO QDAY 11/01/16 11/22/16 11/21/16 History Ezetimibe [Zetia] 10 mg PO DAILY 11/01/16 11/21/16 11/21/16 History Gabapentin [Neurontin] 300 mg PO Q8HR 11/01/16 11/21/16 11/21/16 History Latanoprost 0.005% 1 drop OU DAILY 11/01/16 11/21/16 11/21/16 History Metoprolol [Lopressor] 25 mg PO BID 11/01/16 11/21/16 11/21/16 History amLODIPine 5 mg PO DAILY 11/01/16 11/21/16 11/21/16 History metFORMIN 1,000 mg PO BID 11/01/16 11/21/16 11/21/16 History Review of Systems Constitutional: no weight loss, no weight gain, no fever, no chills Ears, nose, mouth and throat: no ear pain, no ear discharge, no tinnitis, no nose pain, no nasal congestion, no nasal discharge, no sinus pressure Cardiovascular: no chest pain, no orthopnea, no palpitations, no rapid/irregular heart beat, no edema, no lightheadedness Respiratory: no cough, no cough with sputum, no hemoptysis, no shortness of breath Gastrointestinal: abdominal pain, nausea, vomiting, no hematemesis, no BRBPR, no melena, no hematochezia, no loss of appetite, no heartburn Genitourinary Male: no hematuria, no flank pain, no discharge, no urinary frequency, no urinary hesitancy Rectal: no pain, no incontinence, no bleeding Musculoskeletal: no neck stiffness, no neck pain, no low back pain, no redness of joints Integumentary: no rash, no pruritis, no sores, no wounds Neurological: no head injury, no transient paralysis, no parathesias, no tingling, no syncope, no ataxia Psychiatric: no anxiety, no change in sleep habits, no insomnia, no hypersomnia, no change in appetite, no change in libido, no suicidal ideation Endocrine: no cold intolerance, no excessive thirst, no polydipsia, no polyuria, no nocturia, no excessive sweating Hematologic/Lymphatic: no easy bruising, no lymphadenopathy, no lymphedema Allergic/Immunologic: no allergic rhinitis, no wheezing, no persistent infections, no anaphylaxis Exam - Constitutional Vitals: Temp Pulse Resp BP Pulse Ox 97.8 F 54 L 18 174/82 98 05/18/19 11:32 05/18/19 11:32 05/18/19 15:00 05/18/19 11:32 05/18/19 15:00 General appearance: Present: mild distress, cachectic - EENT Eyes: Present: PERRL ENT: hearing intact, clear oral mucosa - Neck Neck: Present: supple, normal ROM - Respiratory Respiratory effort: normal Respiratory: bilateral: CTA - Cardiovascular Heart Sounds: Present: S1 & S2. Absent: rub, click - Extremities Extremities: pulses symmetrical, No edema Peripheral Pulses: within normal limits - Abdominal General gastrointestinal: Present: soft, non-tender, non-distended, normal bowel sounds Male genitourinary: Present: normal - Integumentary Integumentary: Present: clear, warm, dry - Musculoskeletal Musculoskeletal: gait normal, strength equal bilaterally - Psychiatric Psychiatric: appropriate mood/affect, intact judgment & insight - Neurologic Neurologic: CNII-XII intact, moves all extremities Results - Labs CBC & Chem 7: 05/18/19 11:59 05/18/19 Unknown Labs: Abnormal lab results 05/18/19 05/18/19 05/18/19 Range/Units 11:59 11:59 Unknown RDW 16.0 H (13.2-15.2) % Sodium 134 L (137-145) mmol/L Potassium 6.0 H 6.2 H* (3.6-5.0) mmol/L Carbon Dioxide 18 L (22-30) mmol/L BUN 22 H (9-20) mg/dL Creatinine 1.8 H (0.8-1.5) mg/dL Glucose 161 H (75-100) mg/dL Albumin 3.4 L (3.9-5) g/dL Lipase 84 H (13-60) units/L Assessment and Plan - Patient Problems (1) ISH (acute kidney injury) Current Visit: Yes Status: Acute Plan to address problem: IV fluid resuscitation therapy, monitor urine output every shift, strict I's/O, avoid nephrotoxic agents, supportive care. (2) Severe malnutrition Current Visit: Yes Status: Acute Plan to address problem: Encourage increased p.o. intake, dietary supplementation, supportive care (3) Acidosis Current Visit: Yes Status: Acute Plan to address problem: IV fluid resuscitation therapy, IV bicarbonate therapy, repeat BMP in a.m. (4) Diabetes Current Visit: Yes Status: Acute Plan to address problem: Consistent carbohydrate diet, sliding scale insulin therapy, Accu-Chek, hypoglycemia protocol. (5) HTN (hypertension) Current Visit: Yes Status: Acute Qualifiers: Hypertension type: essential hypertension Qualified Code(s): I10 - Essential (primary) hypertension Plan to address problem: Monitor blood pressure every shift, supportive care. Continue medical management. (6) GERD (gastroesophageal reflux disease) Current Visit: Yes Status: Acute Qualifiers: Esophagitis presence: without esophagitis Qualified Code(s): K21.9 - Gastro-esophageal reflux disease without esophagitis Plan to address problem: PPI therapy, supportive care. (7) Acute on chronic pancreatitis Current Visit: Yes Status: Acute Plan to address problem: Bowel rest, IV fluid resuscitation therapy, CT abdomen and pelvis, advance diet as tolerated. Blood alcohol level. (8) DVT prophylaxis Current Visit: Yes Status: Acute Plan to address problem: SCD to bilateral lower extremities while in bed, patient is ambulatory.
[2019-05-18 17:29] LABS: Bilirubin,Urine NEG (Negative); Blood,Urine SM (Negative); Color,Urine Yellow (Yellow); Urobilinogen,Urine < 2.0 mg/dL (<2.0); WBC,Urine < 1.0 /HPF (0.0-6.0)
[2019-05-18] MEDS: METOPROLOL TARTRATE 25 MG TAB PO SCH (23:09)
[2019-05-18] MEDS ORDERED: DEXTROSE 5% IN WATER 1,000 ML IV SCH (23:45)
[2019-05-19] MEDS: INSULIN LISPRO 100 UNIT/ML SUB-Q SCH ×4 (00:53→14:02)
[2019-05-19] MEDS ORDERED: SODIUM CHLORIDE 0.45% 1000 ML 1,000 ML IV SCH (01:00)
[2019-05-19] MEDS: DEXTROSE 50% IN WATER (25GM) 50 ML SYRINGE IV PRN ×2 (04:05→04:26)
[2019-05-19 04:34] LABS: Hematocrit 35.7 % (35.5-45.6); Mean Corpuscular HGB Conc 34 % (32-34); Mean Corpuscular Volume 88 fl (84-94); Platelet Count 208 K/mm3 (140-440); Red Blood Count 4.05 M/mm3 (3.65-5.03)
[2019-05-19 04:56] LABS: Alanine Aminotransferase 17 units/L (7-56); Albumin 3.4 g/dL (3.9-5); BUN/Creatinine Ratio 13; Blood Urea Nitrogen 20 mg/dL (9-20); Calcium 8.6 mg/dL (8.4-10.2); Hemolysis Index 1
[2019-05-19] MEDS ORDERED: D5W/0.45% NACL 1,000 ML IV SCH (05:00)
[2019-05-19 05:48] LABS: Basophils % (Manual) 0 % (0.0-1.8); Total Cells Counted 100
[2019-05-19 06:19] LABS: Burr Cells 1+
[2019-05-19 06:20] LABS: Platelet Estimate Consistent w Auto
[2019-05-19] MEDS: COLESEVELAM 625 MG TAB PO SCH ×2 (08:21→13:44)
[2019-05-19] MEDS: METOPROLOL TARTRATE 25 MG TAB PO SCH (09:12)
[2019-05-19] MEDS ORDERED: PANTOPRAZOLE 40 MG TAB PO SCH (10:00)
[2019-05-19] MEDS ORDERED: CLOPIDOGREL 75 MG TAB PO SCH (10:00)
[2019-05-19] MEDS ORDERED: amLODIPine 5 MG TAB PO SCH ×2 (10:00)
[2019-05-19] MEDS ORDERED: POLYETHYLENE GLYCOL 3350 17 GM POWDER PO SCH (10:00)
[2019-05-19] MEDS ORDERED: LATANOPROST 0.005% OU SCH (10:00)
[2019-05-19] MEDS ORDERED: EZETIMIBE 10 MG TAB PO SCH (10:00)
[2019-05-19] MEDS ORDERED: DOCUSATE SODIUM 100 MG/10 ML ORAL LIQD PO SCH (10:00)
[2019-05-19] MEDS ORDERED: NON-FORMULARY EACH (Esomeprazole Magnesium [Nexium] 40 MG) PO SCH (10:00)
[2019-05-19] MEDS ORDERED: MINERAL OIL ENEMA 133 ML PR ONE (11:00)
[2019-05-19 12:39] VITALS: BP 163/80
--- NOTE | 2019-05-19 13:21 | Discharge Summary ---
Providers - Providers Date of Admission: 05/18/19 16:50 Date of discharge: 05/19/19 Attending physician: ZENON REDDY Primary care physician: SHIP/REC/DOC CONTROL Hospitalization Condition: Stable Pertinent studies: CT abdomen/pelvis Hospital course: 59-year-old male with CKD, DM, HTN, chronic pancreatitis, GERD, presents to ED for evaluation of his abdomen over the past 1 day. Patient seen and evaluated in the emergency department. Lab and imaging studies reviewed. Patient found to have acute kidney injury with superimposed chronic kidney disease, hyperkalemia, metabolic acidosis, and abdominal pain secondary to chronic pancreatitis and severe constipation. Patient was placed on IV fluids, given stool softener, CT abdomen pelvis showed no sign of acute pancreatitis. His hyperkalemia resolved, creatinine level trended down, had a large bowel movement with stool softener. He was tolerating diet and clinically improved. Patient was then discharged home in stable condition with outpatient follow-up. Discharge diagnosis and management: /Abdominal pain, due to severe constipation -resolved Had large bowel movement after giving stool softener Abdominal pain might also be contributed by chronic pancreatitis / ISH (acute kidney injury), likely vasomotor nephropathy, also have h/o CKD Given IV fluid resuscitation therapy, creatinine was stable on discharge Patient will continue outpatient follow-up with his PCP /Hyperkalemia, potassium was 5.2 on admission, resolved with IV fluid hydration / Diabetes mellitus type II WITH HYPOGLYCEMIC EPISODES Recommended consistent carbohydrate diet, AND TO MONITOR BG / HTN (hypertension), uncontrolled Continue metoprolol and norvasc - increased to 10mg daily / GERD (gastroesophageal reflux disease) PPI therapy, supportive care. / Chronic pancreatitis No sign of acute pancreatitis on CT abdomen and pelvis Continue supportive care /Morbid obesity, counseled for diet and exercise for weight reduction as outpatient as tolerated Patient does not have malnutrition / DVT prophylaxis SCD to bilateral lower extremities while in bed, patient is ambulatory. Disposition: - TO HOME OR SELFCARE Time spent for discharge: 34 minutes Core Measure Documentation - Palliative Care Palliative Care/ Comfort Measures: Not Applicable - Core Measures Any of the following diagnoses?: none Exam - Constitutional Vitals: Temp Pulse Resp BP Pulse Ox 98.5 F 61 18 153/80 95 05/19/19 11:55 05/19/19 11:55 05/19/19 11:55 05/19/19 11:55 05/19/19 11:55 General appearance: Present: no acute distress, well-nourished - EENT Eyes: Present: PERRL ENT: hearing intact, clear oral mucosa - Neck Neck: Present: supple, normal ROM - Respiratory Respiratory effort: normal Respiratory: bilateral: CTA - Cardiovascular Heart Sounds: Present: S1 & S2. Absent: rub, click - Extremities Extremities: pulses symmetrical, No edema Peripheral Pulses: within normal limits - Abdominal General gastrointestinal: Present: soft, non-tender, non-distended, normal bowel sounds - Integumentary Integumentary: Present: clear, warm, dry - Musculoskeletal Musculoskeletal: gait normal, strength equal bilaterally - Psychiatric Psychiatric: appropriate mood/affect, intact judgment & insight - Neurologic Neurologic: CNII-XII intact, moves all extremities Plan Activity: advance as tolerated Weight Bearing Status: Weight Bear as Tolerated Diet: diabetic, renal Special Instructions: record blood sugar diary Follow up with: PRIMARY CARE, [Primary Care Provider] - 3-5 Days Prescriptions: amLODIPine 10 mg PO DAILY #30 tablet
[2019-05-19] MEDS ORDERED: LATANOPROST 0.005% OPHTH SOLN 2.5 ML OU SCH (18:00)
== END 2019-05-19 15:30 | disposition home or self-care (01) ==
LOC: ED 11:19 → 3A 16:50
PROVIDERS: ADMIT Internal Medicine; ATTEND Internal Medicine
DX: N17.9 Acute kidney failure, unspecified (principal); E43 Unspecified severe protein-calorie malnutrition; E87.2 Acidosis; E87.5 Hyperkalemia; I12.9 Hypertensive chronic kidney disease with stage 1 through stage 4 chronic kidney disease, or unspecified chronic kidney disease; N18.9 Chronic kidney disease, unspecified; E11.22 Type 2 diabetes mellitus with diabetic chronic kidney disease; K21.9 Gastro-esophageal reflux disease without esophagitis; K85.90 Acute pancreatitis without necrosis or infection, unspecified; M19.90 Unspecified osteoarthritis, unspecified site; K86.1 Other chronic pancreatitis; Z98.890 Other specified postprocedural states; Z96.641 Presence of right artificial hip joint; Z96.642 Presence of left artificial hip joint; Z86.73 Personal history of transient ischemic attack (TIA), and cerebral infarction without residual deficits; Z79.84 Long term (current) use of oral hypoglycemic drugs
CPT/HCPCS: 36415; 74176; 80053; 81001; 82962; 83690; 84132; 85007; 85025; 93005; 93010; 96372; 96374; 96375; 96376; 99285; 99406; G0378; J1200; J2405; J7030; 80320; G0480; J1815; J2270; J7070

== ENCOUNTER 2020-03-11 16:02 | Observation (INO) | payer OTHER, MEDICARE ==
--- NOTE | 2020-03-11 17:09 | Event Note ---
ED Screening Note Date of service: 03/11/20 Time: 17:08 ED Screening Note: Patient complains of left knee pain after an injury yesterday at his doctor's office Temperature noted to be oral 99.8, on repeat temp is noted to be 100.2 He denies any chest pain, cough, shortness of breath, or body aches/chills This initial assessment/diagnostic orders/clinical plan/treatment(s) is/are subject to change based on patients health status, clinical progression and re- assessment by fellow clinical providers in the ED. Further treatment and workup at subsequent clinical providers discretion. Patient/guardian urged not to elope from the ED as their condition may be serious if not clinically assessed and managed. Initial orders include: Labs X-ray
--- NOTE | 2020-03-11 17:52 | XRay Report ---
LEFT KNEE 3 VIEW(S) INDICATION / CLINICAL INFORMATION: pain after fall COMPARISON: None available. FINDINGS: BONES / JOINT(S): No acute fracture or subluxation. Degenerative osteoarthrosis with minimal chondroc alcinosis in the lateral joint line. Small-moderate effusion. SOFT TISSUES: Moderate atherosclerotic calcification. Mild diffuse edema. ADDITIONAL FINDINGS: None. Signer Name: Wild Marshall MD Signed: 03/11/2020 5:47 PM Workstation Name: [id number]
[2020-03-11 18:20] LABS: Basophils % (Auto) 0.5 % (0.0-1.8); Eosinophils % (Auto) 0.3 % (0.0-4.3); Hematocrit 36.3 % (35.5-45.6); Hemoglobin 12.3 gm/dl (11.8-15.2); Lymphocytes % (Auto) 20.3 % (13.4-35.0); Mean Corpuscular HGB Conc 34 % (32-34); Mean Corpuscular Volume 91 fl (84-94); Monocytes # (Auto) 1.1 K/mm3 (0.0-0.8); Monocytes % (Auto) 11.3 % (0.0-7.3); Platelet Count 213 K/mm3 (140-440); Red Cell Distribution Width 15.4 % (13.2-15.2)
[2020-03-11 18:25] LABS: Albumin 3.2 g/dL (3.9-5); Calcium 8.7 mg/dL (8.4-10.2)
--- NOTE | 2020-03-11 20:17 | XRay Report ---
CHEST 1 VIEW 8:03 PM INDICATION / CLINICAL INFORMATION: Fever. COMPARISON: 08/25/16. FINDINGS: SUPPORT DEVICES: None. HEART / MEDIASTINUM: The heart size and pulmonary vasculature are normal. LUNGS / PLEURA: Mild chronic interstitial lung disease is stable. No acute pulmonary or pleural abnor mality. No pneumothorax. ADDITIONAL FINDINGS: No significant additional findings. IMPRESSION: No acute abnormality or significant change. No evidence of pneumonia. Signer Name: Wild Buckner MD Signed: 03/11/2020 8:13 PM Workstation Name: [id number]
--- NOTE | 2020-03-12 01:10 | Emergency Department Report ---
ED Lower Extremity HPI - General Chief Complaint: Fall Stated Complaint: FELL /LEFT LEG INJURY Time Seen by Provider: 03/12/20 00:43 Source: patient Mode of arrival: Wheelchair Limitations: No Limitations - History of Present Illness Initial Comments: Patient is a 60-year-old male that presents emergency room with complaints of left knee pain. Patient states he was at his doctor's office yesterday and fell and hit his knee on a metal tray. Patient states that he is unable to walk due to the pain. Patient states the pain is a 10 out of 10. Patient states the left knee is swollen. Patient states he put an Luiz bandage on it which makes it feel better. While in triage, the patient was found to be febrile. Patient had his initial temperature 99.8 and then a repeat temperature at 101.2. Patient denies chills. Patient denies chest pain. Patient denies shortness of breath. Patient denies diarrhea. Patient denies nausea vomiting. Patient denies recent travel. Patient denies recent international travel. Patient denies exposure to the novel coronavirus. Patient denies sick contacts. Patient denies loss of smell.. Patient denies cough. Patient denies diarrhea. Patient denies coming in contact with anybody with symptoms of the novel coronavirus. Complaint: knee injury -: Sudden Injury: Knee: Left Type of Injury: blunt Place: other Severity: severe Severity scale (0 -10): 10 Improves With: rest Worsens With: weight bearing, movement, palpation Context: fall, direct blow Associated Symptoms: swelling, unable to bear weight Treatments Prior to Arrival: bandage - Related Data Home Medications Medication Instructions Recorded Confirmed Last Taken Esomeprazole Magnesium [NexIUM] 40 mg PO QDAY 11/01/16 05/19/19 11/21/16 Gabapentin 800 mg PO BID 11/01/16 05/19/19 05/17/19 22:00 Latanoprost 0.005% 1 drop OU DAILY 11/01/16 05/19/19 05/17/19 08:00 Metoprolol [Lopressor TAB] 25 mg PO BID 11/01/16 05/19/19 05/17/19 12:30 Glimepiride 4 mg PO DAILY 05/19/19 05/19/19 Unknown Januvia 100 mg PO DAILY 05/19/19 05/19/19 Unknown NIFEdipine 30 mg PO DAILY 05/19/19 05/19/19 Unknown Pepcid 20 mg PO BID 05/19/19 05/19/19 Unknown Rosuvastatin (Nf) 40 mg PO DAILY 05/19/19 05/19/19 Unknown Previous Rx's Medication Instructions Recorded Last Taken Type amLODIPine 10 mg PO DAILY #30 tablet 05/19/19 Unknown Rx Allergies Allergy/AdvReac Type Severity Reaction Status Date / Time latex Allergy Intermediate Hives Verified 03/11/20 16:25 antioxidant multivitamin Allergy Rash Verified 03/11/20 16:25 combo. no. [From I-Caps] codeine Allergy Hives Verified 03/11/20 16:25 docosahexanoic acid Allergy Rash Verified 03/11/20 16:25 [From I-Caps] eicosapentaenoic acid Allergy Rash Verified 03/11/20 16:25 [From I-Caps] lutein [From I-Caps] Allergy Rash Verified 03/11/20 16:25 omega-3 fatty acids Allergy Rash Verified 03/11/20 16:25 [From I-Caps] Sulfa (Sulfonamide Allergy Rash Verified 03/11/20 16:25 Antibiotics) zeaxanthin [From I-Caps] Allergy Rash Verified 03/11/20 16:25 ED Review of Systems ROS: Stated complaint: FELL /LEFT LEG INJURY Other details as noted in HPI Constitutional: denies: chills, fever Eyes: denies: eye pain, eye discharge, vision change ENT: denies: ear pain, throat pain Respiratory: denies: cough, shortness of breath, wheezing Cardiovascular: denies: chest pain, palpitations Endocrine: no symptoms reported Gastrointestinal: denies: abdominal pain, nausea, diarrhea Genitourinary: denies: urgency, dysuria Musculoskeletal: denies: back pain, joint swelling, arthralgia Skin: denies: rash, lesions Neurological: denies: headache, weakness, paresthesias Psychiatric: denies: anxiety, depression Hematological/Lymphatic: denies: easy bleeding, easy bruising ED Past Medical Hx - Past Medical History Previous Medical History?: Yes Hx Hypertension: Yes Hx CVA: Yes Hx Congestive Heart Failure: No Hx Diabetes: Yes Hx GERD: Yes Hx Sickle Cell Disease: No Hx Arthritis: Yes (LEFT HIP SURGERY) Hx Asthma: No Hx COPD: No Hx Tuberculosis: No Hx HIV: No Additional medical history: Blood clot around heart - Surgical History Past Surgical History?: Yes Additional Surgical History: Left Hip surgery, Hernia repair - Family History Family history: no significant - Social History Smoking Status: Current Every Day Smoker Substance Use Type: None - Medications Home Medications: Home Medications Medication Instructions Recorded Confirmed Last Taken Type Esomeprazole Magnesium [NexIUM] 40 mg PO QDAY 11/01/16 05/19/19 11/21/16 History Gabapentin 800 mg PO BID 11/01/16 05/19/19 05/17/19 22:00 History Latanoprost 0.005% 1 drop OU DAILY 11/01/16 05/19/19 05/17/19 08:00 History Metoprolol [Lopressor TAB] 25 mg PO BID 11/01/16 05/19/19 05/17/19 12:30 History Glimepiride 4 mg PO DAILY 05/19/19 05/19/19 Unknown History Januvia 100 mg PO DAILY 05/19/19 05/19/19 Unknown History NIFEdipine 30 mg PO DAILY 05/19/19 05/19/19 Unknown History Pepcid 20 mg PO BID 05/19/19 05/19/19 Unknown History Rosuvastatin (Nf) 40 mg PO DAILY 05/19/19 05/19/19 Unknown History amLODIPine 10 mg PO DAILY #30 tablet 05/19/19 Unknown Rx ED Physical Exam - General Limitations: No Limitations General appearance: alert, in no apparent distress - Head Head exam: Present: atraumatic, normocephalic - Eye Eye exam: Present: normal appearance - ENT ENT exam: Present: mucous membranes moist - Neck Neck exam: Present: normal inspection - Respiratory Respiratory exam: Present: normal lung sounds bilaterally. Absent: respiratory distress - Cardiovascular Cardiovascular Exam: Present: regular rate, normal rhythm. Absent: systolic murmur, diastolic murmur, rubs, gallop - GI/Abdominal GI/Abdominal exam: Present: soft, normal bowel sounds. Absent: tenderness - Rectal Rectal exam: Present: deferred - Extremities Exam Extremities exam: Present: normal inspection (Except left knee), full ROM (Except left knee), tenderness (To left knee), normal capillary refill, joint swelling (Left knee). Absent: pedal edema, calf tenderness - Back Exam Back exam: Present: normal inspection - Neurological Exam Neurological exam: Present: alert, oriented X3 - Psychiatric Psychiatric exam: Present: normal affect, normal mood - Skin Skin exam: Present: warm, dry, intact, normal color. Absent: rash ED Course Vital Signs 03/11/20 03/12/20 03/12/20 16:27 00:59 01:00 Temperature 99.8 F H Pulse Rate 73 Respiratory 16 Rate Blood Pressure 151/84 182/111 O2 Sat by Pulse 98 100 97 Oximetry 03/12/20 02:00 Temperature 98.6 F Pulse Rate 68 Respiratory Rate Blood Pressure 139/99 O2 Sat by Pulse 99 Oximetry - Reevaluation(s) Reevaluation #1: I discussed all results with patient. I discussed plan of care with patient. Patient agrees with plan of care and admission. Patient to be admitted to the hospitalist service. 03/12/20 02:31 - Consultations Consultation #1: Hospitalist consulted for admission. Hospitalist to admit patient. Hospitalist the patient received the hyperkalemia protocol. 03/12/20 02:31 ED Lower Extremity MDM - Lab Data Result diagrams: 03/11/20 17:41 03/11/20 17:41 - EKG Data -: EKG Interpreted by Id EKG shows normal: sinus rhythm, axis, intervals, QRS complexes, ST-T waves Rate: normal - EKG Data Interpretation: other (Peaked T waves) - Radiology Data Radiology results: report reviewed CHEST 1 VIEW 8:03 PM INDICATION / CLINICAL INFORMATION: Fever. COMPARISON: 08/25/16. FINDINGS: SUPPORT DEVICES: None. HEART / MEDIASTINUM: The heart size and pulmonary vasculature are normal. LUNGS / PLEURA: Mild chronic interstitial lung disease is stable. No acute pulmonary or pleural abnormality. No pneumothorax. ADDITIONAL FINDINGS: No significant additional findings. IMPRESSION: No acute abnormality or significant change. No evidence of pneumonia. LEFT KNEE 3 VIEW(S) INDICATION / CLINICAL INFORMATION: pain after fall COMPARISON: None available. FINDINGS: BONES / JOINT(S): No acute fracture or subluxation. Degenerative osteoarthrosis with minimal chondrocalcinosis in the lateral joint line. Small-moderate effusion. SOFT TISSUES: Moderate atherosclerotic calcification. Mild diffuse edema. ADDITIONAL FINDINGS: None. - Medical Decision Making Patient is a 60-year-old male who presents emergency room with complaints of knee pain after a fall. Patient was found to be febrile and the triage. Patient then had labs which showed acute renal failure and hyperkalemia. Patient's origin of fever is unknown. Patient's chest x-ray is negative. Patient's UA is negative. Patient's white count is negative. Patient given fluids and a hyperkalemia protocol to include insulin, D50 and calcium and Kayexalate. Patient admitted to the hospital service for further evaluation treatment. - Differential Diagnosis Knee contusion, fever, knee pain, Critical Care Time: Yes Critical care time in (mins) excluding proc time.: 35 Critical care attestation.: If time is entered above; I have spent that time in minutes in the direct care of this critically ill patient, excluding procedure time. Critical Care Time: 35 minutes ED Disposition Clinical Impression: Hyperkalemia Acute renal failure Qualifiers: Acute renal failure type: unspecified Qualified Code(s): N17.9 - Acute kidney failure, unspecified Fever Qualifiers: Fever type: unspecified Qualified Code(s): R50.9 - Fever, unspecified Knee pain Qualifiers: Chronicity: acute Laterality: left Qualified Code(s): M25.562 - Pain in left knee Contusion, knee Qualifiers: Encounter type: initial encounter Laterality: left Qualified Code(s): S80.02XA - Contusion of left knee, initial encounter Disposition: OP ADMIT IP TO THIS HOSP Is pt being admited?: Yes Does the pt Need Aspirin: No Condition: Critical Referrals: PRIMARY CARE, [Primary Care Provider] - 3-5 Days Time of Disposition: :
[2020-03-12] MEDS ORDERED: CALCIUM CHLORIDE 1,000 MG/10 ML SYRINGE IV ONE (02:29)
[2020-03-12] MEDS ORDERED: SODIUM POLYSTYRENE 15 GM/60 ML ORAL LIQD PO ONE ×3 (02:29→14:00)
[2020-03-12] MEDS ORDERED: INSULIN REGULAR, HUMAN 100 UNIT/ML 3ML VIAL IV ONE (02:29)
[2020-03-12] MEDS ORDERED: DEXTROSE 50% IN WATER (25GM) 50 ML SYRINGE IV ONE (02:29)
[2020-03-12 02:55] LABS: Bilirubin,Urine NEG (Negative); Blood,Urine NEG (Negative); Color,Urine Yellow (Yellow); Mucus,Urine FEW /HPF; Urobilinogen,Urine < 2.0 mg/dL (<2.0)
[2020-03-12 03:00] LABS: Protein,Urine >500 mg/dL (Negative)
[2020-03-12] MEDS ORDERED: SODIUM CHLORIDE 0.9% 1000 ML 1,000 ML IV ONE (03:19)
[2020-03-12] MEDS ORDERED: SODIUM CHLORIDE 0.9% 1000 ML 1,000 ML ONE (03:19)
--- NOTE | 2020-03-12 05:10 | History and Physical Report ---
History of Present Illness Date of examination: 03/12/20 Date of admission: 03/12/20 03:44 Chief complaint: S/P fall Left Knee pain and edema ISH Hyperkalemia History of present illness: This is [id number] male that presents emergency room with complaints of left k nee pain. Patient states he was at his doctor's office yesterday and fell and hit his knee on a metal tray. Patient states that he is unable to walk due to the pain. Patient seen at bedside in ED on room air. Patient reports past medical history of diabetes, hypertension and hyperlipidemia. He has surgical hx of hip surgery 10 years ago. On assessment, he roports left knee tenderness and pain of 5/10. left knee edema noted-x-ray showed no acute fracture. ED work up showed sodium 136, hemoglobin 12.3, WBC 9.9, patient level 5.8, glucose 112, C02 18 Chest x-ray showed no acute finding Left Knee x-ray showed no fracture. Past History Past Medical History: diabetes, hypertension, hyperlipidemia Past Surgical History: Other (hip surgery 10 years ago) Social history: smoking (smokes about 1 park every 3 days), full code Family history: diabetes (Hypertension in mother and father), hypertension Medications and Allergies Allergies Allergy/AdvReac Type Severity Reaction Status Date / Time latex Allergy Intermediate Hives Verified 03/11/20 16:25 antioxidant multivitamin Allergy Rash Verified 03/11/20 16:25 combo. no. [From I-Caps] codeine Allergy Hives Verified 03/11/20 16:25 docosahexanoic acid Allergy Rash Verified 03/11/20 16:25 [From I-Caps] eicosapentaenoic acid Allergy Rash Verified 03/11/20 16:25 [From I-Caps] lutein [From I-Caps] Allergy Rash Verified 03/11/20 16:25 omega-3 fatty acids Allergy Rash Verified 03/11/20 16:25 [From I-Caps] Sulfa (Sulfonamide Allergy Rash Verified 03/11/20 16:25 Antibiotics) zeaxanthin [From I-Caps] Allergy Rash Verified 03/11/20 16:25 Home Medications Medication Instructions Recorded Confirmed Last Taken Type Esomeprazole Magnesium [NexIUM] 40 mg PO QDAY 11/01/16 05/19/19 11/21/16 History Gabapentin 800 mg PO BID 11/01/16 05/19/19 05/17/19 22:00 History Latanoprost 0.005% 1 drop OU DAILY 11/01/16 05/19/19 05/17/19 08:00 History Metoprolol [Lopressor TAB] 25 mg PO BID 11/01/16 05/19/19 05/17/19 12:30 History Glimepiride 4 mg PO DAILY 05/19/19 05/19/19 Unknown History Januvia 100 mg PO DAILY 05/19/19 05/19/19 Unknown History NIFEdipine 30 mg PO DAILY 05/19/19 05/19/19 Unknown History Pepcid 20 mg PO BID 05/19/19 05/19/19 Unknown History Rosuvastatin (Nf) 40 mg PO DAILY 05/19/19 05/19/19 Unknown History amLODIPine 10 mg PO DAILY #30 tablet 05/19/19 Unknown Rx Active Meds: Active Medications Sodium Chloride (Nacl 0.9% 1000 Ml) 1,000 mls @ 250 mls/hr IV ONCE ONE Stop: 03/12/20 07:18 Last Admin: 03/12/20 03:22 Dose: 250 mls/hr Documented by: Review of Systems Ears, nose, mouth and throat: no ear pain, no ear discharge Cardiovascular: high blood pressure Respiratory: no excessive sputum, no shortness of breath Gastrointestinal: no abdominal pain Genitourinary Male: no dysuria, no hematuria Rectal: no hemorrhoids Musculoskeletal: other (s/p fall on left knee with pain 5/10 on pain scale) Integumentary: sores (left knee soreness and swelling) Neurological: no transient paralysis, no paralysis Psychiatric: no disorientation, no hallucinations Endocrine: no excessive sweating Hematologic/Lymphatic: no easy bleeding, no lymphadenopathy Allergic/Immunologic: no anaphylaxis Exam - Constitutional Vitals: Temp Pulse Resp BP Pulse Ox 98.6 F 59 L 14 153/84 92 03/12/20 02:00 03/12/20 04:01 03/12/20 04:01 03/12/20 04:01 03/12/20 04:01 General appearance: Present: mild distress, other (frail appearing sick patient) - EENT Eyes: Present: PERRL ENT: hearing intact, clear oral mucosa - Neck Neck: Present: supple, normal ROM - Respiratory Respiratory effort: normal Respiratory: bilateral: diminished (tobacco use) - Cardiovascular Heart rate: 59 Heart Sounds: Present: S1 & S2. Absent: rub, click - Extremities Extremities: pulses symmetrical, abnormal (left knee swelling ) Extremity abnormal: edema (left knee area) Peripheral Pulses: within normal limits - Abdominal General gastrointestinal: Present: soft, non-tender, non-distended, normal bowel sounds Male genitourinary: Present: normal - Integumentary Integumentary: Present: clear, warm, dry - Musculoskeletal Musculoskeletal: gait normal, strength equal bilaterally - Psychiatric Psychiatric: appropriate mood/affect, intact judgment & insight, cooperative - Neurologic Neurologic: CNII-XII intact, moves all extremities - Allied Health Allied health notes reviewed: nursing Results - Labs CBC & Chem 7: 03/11/20 17:41 03/11/20 17:41 Labs: Abnormal lab results 03/11/20 03/11/20 03/11/20 Range/Units 17:41 17:41 17:41 RDW 15.4 H (13.2-15.2) % Robeson % (Auto) 11.3 H (0.0-7.3) % Robeson # (Auto) 1.1 H (0.0-0.8) K/mm3 Sodium 136 L (137-145) mmol/L Potassium 5.8 H (3.6-5.0) mmol/L Chloride 109.2 H (98-107) mmol/L Carbon Dioxide 18 L (22-30) mmol/L BUN 26 H (9-20) mg/dL Creatinine 2.0 H (0.8-1.3) mg/dL Glucose 112 H (75-100) mg/dL Lactic Acid 0.60 L (0.7-2.0) mmol/L Albumin 3.2 L (3.9-5) g/dL Assessment and Plan - Patient Problems (1) ISH (acute kidney injury) Current Visit: No Status: Acute Plan to address problem: IV hydration Monitor kidney function Avoid nephrotoxic agents Renal US Hypnotherapist consult (2) Status post fall Current Visit: Yes Status: Acute Plan to address problem: Patient reports a fall with knee pain and swelling X-ray left knee-showed no fracture but edema of soft tissue and effusion pain management PRN (3) Contusion, knee Current Visit: Yes Status: Acute Qualifiers: Encounter type: initial encounter Laterality: left Qualified Code(s): S80.02XA - Contusion of left knee, initial encounter Plan to address problem: Contusion of left knee-2/2 to a fall pain management x-ray of left knee negative for fracture (4) Metabolic acidosis Current Visit: Yes Status: Acute Plan to address problem: most likely 2/2 to ISH Continue IV hydration monitor kidney function (5) Hyperkalemia Current Visit: Yes Status: Acute Plan to address problem: Possibly 2/2 to ISH kayexalete given in ED on admission Insulin, dextrose and calcium chloride given in ED Monitor potassium level and other electrolytes (6) Diabetes Current Visit: No Status: Acute Plan to address problem: pt reports his blood sugar is stable at home Monitor blood sugar with SSI Check [id number] with result Resume home antiglycermic (7) HTN (hypertension) Current Visit: No Status: Acute Qualifiers: Qualified Code(s): I10 - Essential (primary) hypertension Plan to address problem: Monitor blood pressure resume home antihypertensive Adjust bp med if needed (8) DVT prophylaxis Current Visit: Yes Status: Acute Plan to address problem: SQH
[2020-03-12] MEDS ORDERED: ACETAMINOPHEN 325 MG TAB PO PRN (05:32)
[2020-03-12] MEDS ORDERED: MAGNESIUM HYDROXIDE (MOM) ORAL LIQD UDC PO PRN (05:32)
[2020-03-12] MEDS ORDERED: DEXTROSE 50% IN WATER (25GM) 50 ML SYRINGE IV PRN (05:32)
[2020-03-12] MEDS ORDERED: SENNOSIDES 8.6 MG TAB PO PRN (05:32)
[2020-03-12] MEDS ORDERED: ALUM-MAG HYDROXIDE-SIMETHICONE 200-200-20MG/5ML ORAL LIQD 30 ML PO PRN (05:32)
[2020-03-12] MEDS ORDERED: METOCLOPRAMIDE 10 MG/2 ML INJ IV PRN ×2 (05:32→05:45)
[2020-03-12] MEDS ORDERED: ONDANSETRON 4 MG/2 ML INJ IV PRN (05:32)
[2020-03-12] MEDS ORDERED: ALBUTEROL 2.5 MG/3 ML NEBU IH PRN (05:32)
[2020-03-12] MEDS ORDERED: traMADol 50 MG TAB PO PRN (05:59)
[2020-03-12] MEDS ORDERED: traZODone 50 MG TAB PO PRN (05:59)
[2020-03-12 06:04] LABS: Chol/HDL Ratio 2.27 %
[2020-03-12] MEDS: SODIUM CHLORIDE 0.9% 1000 ML 1,000 ML IV SCH (07:36)
[2020-03-12 08:27] LABS: Albumin 2.7 g/dL (3.9-5); Calcium 9.3 mg/dL (8.4-10.2)
[2020-03-12] MEDS: INSULIN LISPRO 100 UNIT/ML VIAL 3 mL SUB-Q SCH ×4 (08:55→21:31)
[2020-03-12] MEDS: GLIMEPIRIDE 4 MG TAB PO SCH (10:03)
[2020-03-12] MEDS: FAMOTIDINE 20 MG TAB PO SCH (10:03)
[2020-03-12] MEDS: GABAPENTIN 300 MG CAP PO SCH ×2 (10:03→21:29)
[2020-03-12] MEDS: HEPARIN 5,000 UNIT/1 ML VIAL SUB-Q SCH ×2 (10:04→21:29)
[2020-03-12] MEDS: METOPROLOL TARTRATE 25 MG TAB PO SCH ×2 (10:04→21:30)
--- NOTE | 2020-03-12 10:07 | Event Note ---
Date: 03/12/20 I have seen and examined the patient at the bedside Patient's chart and medications reviewed Admitted with status post mechanical fall, and knee injury X-ray knee no fracture no subluxation Patient also has acute kidney injury and hyperkalemia Managed appropriately consulted nephrology Will closely monitor the patient and adjust the management as needed Plan of care reviewed with the patient and his nurse PT requested, DC planning in 1 to 2 days if stable
--- NOTE | 2020-03-12 11:55 | Consultation ---
History of Present Illness - Reason for Consult Consult date: 03/12/20 chronic renal failure - History of Present Illness This is [id number] male that presents emergency room with complaints of left knee pain after a fall ED work up Kevel 5.8w thi abnromal Cr, Chest x-ray showed no acute finding, Left Knee x-ray showed no fracture. renal consult was requested for treatment of ISH and hyperkalemia Past History Past Medical History: diabetes, hypertension, hyperlipidemia Past Surgical History: Other (hip surgery 10 years ago) Social history: smoking (smokes about 1 park every 3 days), full code Family history: diabetes (Hypertension in mother and father), hypertension Medications and Allergies Allergies Allergy/AdvReac Type Severity Reaction Status Date / Time latex Allergy Intermediate Hives Verified 03/11/20 16:25 antioxidant multivitamin Allergy Rash Verified 03/11/20 16:25 combo. no. [From I-Caps] codeine Allergy Hives Verified 03/11/20 16:25 docosahexanoic acid Allergy Rash Verified 03/11/20 16:25 [From I-Caps] eicosapentaenoic acid Allergy Rash Verified 03/11/20 16:25 [From I-Caps] lutein [From I-Caps] Allergy Rash Verified 03/11/20 16:25 omega-3 fatty acids Allergy Rash Verified 03/11/20 16:25 [From I-Caps] Sulfa (Sulfonamide Allergy Rash Verified 03/11/20 16:25 Antibiotics) zeaxanthin [From I-Caps] Allergy Rash Verified 03/11/20 16:25 Home Medications Medication Instructions Recorded Confirmed Last Taken Type Esomeprazole Magnesium [NexIUM] 40 mg PO QDAY 11/01/16 05/19/19 11/21/16 History Gabapentin 800 mg PO BID 11/01/16 05/19/19 05/17/19 22:00 History Latanoprost 0.005% 1 drop OU DAILY 11/01/16 05/19/19 05/17/19 08:00 History Metoprolol [Lopressor TAB] 25 mg PO BID 11/01/16 05/19/19 05/17/19 12:30 History Glimepiride 4 mg PO DAILY 05/19/19 05/19/19 Unknown History Januvia 100 mg PO DAILY 05/19/19 05/19/19 Unknown History NIFEdipine 30 mg PO DAILY 05/19/19 05/19/19 Unknown History Pepcid 20 mg PO BID 05/19/19 05/19/19 Unknown History Rosuvastatin (Nf) 40 mg PO DAILY 05/19/19 05/19/19 Unknown History amLODIPine 10 mg PO DAILY #30 tablet 05/19/19 Unknown Rx Active Meds: Active Medications Acetaminophen (Tylenol) 650 mg PO Q4H PRN PRN Reason: Pain MILD(1-3)/Fever >100.5/ANGLIN Al Hydrox/Mg Hydrox/Simethicone (Alum-Mag Hydrox-Simeth [id number]/5ml) 30 ml PO Q4H PRN PRN Reason: Indigestion Albuterol (Proventil) 2.5 mg IH Q4HRT PRN PRN Reason: Shortness Of Breath Dextrose (D50w (25gm) Syringe) 50 ml IV Q30MIN PRN; Protocol PRN Reason: Hypoglycemia Famotidine (Pepcid) 20 mg PO DAILY [facility] Last Admin: 03/12/20 10:03 Dose: 20 mg Documented by: Gabapentin (Gabapentin) 300 mg PO BID [facility] Last Admin: 03/12/20 10:03 Dose: 300 mg Documented by: Glimepiride (Amaryl) 4 mg PO QDDIAB [facility] Last Admin: 03/12/20 10:03 Dose: 4 mg Documented by: Heparin Sodium (Porcine) (Heparin) 5,000 unit SUB-Q Q12HR [facility] Last Admin: 03/12/20 10:04 Dose: 5,000 unit Documented by: Sodium Chloride (Nacl 0.9% 1000 Ml) 1,000 mls @ 100 mls/hr IV DIRECT [facility] Last Admin: 03/12/20 07:36 Dose: 100 mls/hr Documented by: Insulin Human Lispro (Humalog) 0 unit SUB-Q ACHS [facility]; Protocol Last Admin: 03/12/20 08:55 Dose: Not Given Documented by: Magnesium Hydroxide (Milk Of Magnesia) 30 ml PO Q4H PRN PRN Reason: Constipation Metoclopramide HCl (Reglan) 5 mg IV Q6H PRN PRN Reason: Nausea And Vomiting Metoprolol Tartrate (Metoprolol) 25 mg PO BID [facility] Last Admin: 03/12/20 10:04 Dose: 25 mg Documented by: Ondansetron HCl (Zofran) 4 mg IV Q8H PRN PRN Reason: Nausea And Vomiting Senna (Senokot) 8.6 mg PO Q12HR PRN PRN Reason: Constipation Sodium Chloride (Sodium Chloride Flush Syringe 10 Ml) 10 ml IV BID [facility]LEY Sodium Chloride (Sodium Chloride Flush Syringe 10 Ml) 10 ml IV PRN PRN PRN Reason: LINE FLUSH Tramadol HCl (Ultram) 50 mg PO Q4H PRN PRN Reason: Pain, Moderate (4-6) Trazodone HCl (Desyrel) 50 mg PO QHS PRN PRN Reason: Insomnia Review of Systems All systems: negative (L knee pain) Exam - Vital Signs Vital signs: Vital Signs Temp Pulse Resp BP Pulse Ox 99.8 F H 73 16 151/84 98 03/11/20 16:27 03/11/20 16:27 03/11/20 16:27 03/11/20 16:27 03/11/20 16:27 - General Appearance General appearance: well-developed, well-nourished EENT: ATNC, PERRL, mucous membranes moist Neck: Present: neck supple Respiratory: Clear to Ascultation Heart: regular, S1S2 Gastrointestinal: Present: normoactive bowel sounds Integumentary: no rash, warm and dry Neurologic: no focal deficit, no asterixis, alert and oriented x3 Musculoskeletal: Present: other (no edema in BLE) Psychiatric: mood/affect appropriate, cooperative Results - Lab Results 03/11/20 17:41 03/12/20 07:28 Most recent lab results Calcium 9.3 mg/dL (8.4-10.2) 03/12/20 07:28 Assessment and Plan (1) ISH (acute kidney injury) (2) Status post fall (3) Contusion, knees (5) Hyperkalemia (6) Diabetes (7) HTN (hypertension) (8) DVT prophylaxis according to patient he has CKD but does not know baseline patient received keyxelate, IVF, IV calcium and IV insulin, will repeat BMP ~ 1400 renal US is pending urine studies ordered renally dose meds strict I&O daily weight Ko cantu MD [phone]
--- NOTE | 2020-03-12 12:46 | Ultrasound Report ---
ULTRASOUND RENAL INDICATION: ISH. COMPARISON: Noncontrast CT abdomen 05/18/2019. FINDINGS: RIGHT KIDNEY: Size: 9.9 cm. Echogenicity: Echogenic. Cortical thickness: 0.8 cm. Hydronephrosis: None. Cyst or mass: None. Stones: None. LEFT KIDNEY: Size: 9.8 cm. Echogenicity: Echogenic. Cortical thickness: 0.9 cm. Hydronephrosis: None. Cyst or mass: 1.6 x 1.4 x 1.4 cm solid renal mass increased color Doppler flow. Simple 1 cm cyst. Sto codie: None. Urinary Bladder: No significant abnormality. Free Fluid: None. Additional Findings: None. IMPRESSION 1. 2.6 cm solid left renal mass worrisome for renal cell carcinoma not seen on previous noncontrast C T 2. Echogenic kidneys characteristic for medical renal disease. Signer Name: Kalyan Delgado MD Signed: 03/12/2020 12:41 PM Workstation Name: [id number]
[2020-03-12 18:19] LABS: Bilirubin,Urine NEG (Negative); Blood,Urine NEG (Negative); Color,Urine Yellow (Yellow); Hyaline Casts,Urine 1 /LPF; Mucus,Urine FEW /HPF; Urobilinogen,Urine < 2.0 mg/dL (<2.0)
[2020-03-12 18:21] LABS: Protein,Urine >500 mg/dL (Negative)
[2020-03-12 18:30] LABS: Creatinine,Urine 75.7 mg/dL (0.1-20.0)
[2020-03-12 18:35] LABS: Creatinine,Urine 76.5 mg/dL (0.1-20.0)
[2020-03-12 19:05] LABS: Protein/Creatinine Ratio,Urine 4.61
[2020-03-13] MEDS: GLIMEPIRIDE 4 MG TAB PO SCH (08:02)
[2020-03-13] MEDS: INSULIN LISPRO 100 UNIT/ML VIAL 3 mL SUB-Q SCH ×4 (08:02→21:44)
[2020-03-13] MEDS: SODIUM CHLORIDE 0.9% 1000 ML 1,000 ML IV SCH ×2 (08:24→17:44)
--- NOTE | 2020-03-13 09:10 | Progress Note ---
Assessment and Plan (1) ISH (acute kidney injury) (2) Status post fall (3) Contusion, knees (5) Hyperkalemia (6) Diabetes (7) HTN (hypertension) (8) DVT prophylaxis according to patient he has CKD but does not know baseline BMP is pending this AM urine studies orderedRenal US negative for obstruction but noted for a mass on the L kidney, will need urology eval as an outpatient renally dose meds strict I&O daily weight Ko cantu MD [phone] Subjective Date of service: 03/13/20 Principal diagnosis: CKD and hyperkalemia Interval history: denies acute issues, had low blood sugar this AM Objective - Vital Signs Vital signs: Vital Signs - 12hr 03/12/20 03/12/20 03/13/20 21:30 22:00 00:32 Temperature 98.0 F Pulse Rate 60 60 71 Respiratory 18 18 Rate Blood Pressure 169/79 156/78 O2 Sat by Pulse 96 96 Oximetry 03/13/20 03/13/20 03/13/20 06:00 06:04 08:41 Temperature 98.0 F 98.4 F Pulse Rate 71 64 66 Respiratory 18 18 Rate Blood Pressure 170/86 156/81 O2 Sat by Pulse 93 96 Oximetry - General Appearance General appearance: well-developed, well-nourished EENT: ATNC, PERRL, mucous membranes moist Respiratory: Present: Clear to Ascultation. Absent: Rales, Ronchi Cardiology: regular, S1S2 Gastrointestinal: normoactive bowel sounds Integumentary: no rash, warm and dry Neurologic: no focal deficit, no asterixis, alert and oriented x3 Musculoskeletal: other (no edema in BLE) Psychiatric: mood/affect appropriate, cooperative - Lab 03/11/20 17:41 03/12/20 07:28 Most recent lab results Calcium 9.3 mg/dL (8.4-10.2) 03/12/20 07:28 Urine Creatinine 75.7 mg/dL (0.1-20.0) H 03/12/20 17:42 Urine Creatinine 76.5 mg/dL (0.1-20.0) H 03/12/20 17:42 Urine Sodium 137 mmol/L 03/12/20 17:42 Urine Total Protein 353 mg/dL (5-11.8) H 03/12/20 17:42 Medications & Allergies - Medications Allergies/Adverse Reactions: Allergies latex Allergy (Intermediate, Verified 03/11/20 16:25) Hives antioxidant multivitamin combo. no. [From I-Caps] Allergy (Verified 03/11/20 16:25) Rash codeine Allergy (Verified 03/11/20 16:25) Hives docosahexanoic acid [From I-Caps] Allergy (Verified 03/11/20 16:25) Rash PT STATES HANDS BLISTERED, RASH, ITCHING eicosapentaenoic acid [From I-Caps] Allergy (Verified 03/11/20 16:25) Rash lutein [From I-Caps] Allergy (Verified 03/11/20 16:25) Rash omega-3 fatty acids [From I-Caps] Allergy (Verified 03/11/20 16:25) Rash Sulfa (Sulfonamide Antibiotics) Allergy (Verified 03/11/20 16:25) Rash zeaxanthin [From I-Caps] Allergy (Verified 03/11/20 16:25) Rash Home Medications: Home Medications Medication Instructions Recorded Confirmed Last Taken Type Esomeprazole Magnesium [NexIUM] 40 mg PO QDAY 11/01/16 05/19/19 11/21/16 History Gabapentin 800 mg PO BID 11/01/16 05/19/19 05/17/19 22:00 History Latanoprost 0.005% 1 drop OU DAILY 11/01/16 05/19/19 05/17/19 08:00 History Metoprolol [Lopressor TAB] 25 mg PO BID 11/01/16 05/19/19 05/17/19 12:30 History Glimepiride 4 mg PO DAILY 05/19/19 05/19/19 Unknown History Januvia 100 mg PO DAILY 05/19/19 05/19/19 Unknown History NIFEdipine 30 mg PO DAILY 05/19/19 05/19/19 Unknown History Pepcid 20 mg PO BID 05/19/19 05/19/19 Unknown History Rosuvastatin (Nf) 40 mg PO DAILY 05/19/19 05/19/19 Unknown History amLODIPine 10 mg PO DAILY #30 tablet 05/19/19 Unknown Rx Active Medications: Generic Name Dose Route Start Last Admin Trade Name Freq PRN Reason Stop Dose Admin Acetaminophen 650 mg 03/12/20 05:32 Tylenol PO Q4H PRN Pain MILD(1-3)/Fever >100.5/ANGLIN Al Hydrox/Mg Hydrox/Simethicone 30 ml 03/12/20 05:32 Alum-Mag Hydrox-Simeth 600-596-76mi/5ml PO Q4H PRN Indigestion Albuterol 2.5 mg 03/12/20 05:32 Proventil IH Q4HRT PRN Shortness Of Breath Dextrose 50 ml 03/12/20 05:32 03/13/20 08:18 D50w (25gm) Syringe IV 50 ml Q30MIN PRN Administration Hypoglycemia Protocol Famotidine 20 mg 03/12/20 10:00 03/12/20 10:03 Pepcid PO 20 mg DAILY [facility]LEY Administration Gabapentin 300 mg 03/12/20 10:00 03/12/20 21:29 Gabapentin PO 300 mg BID [facility] Administration Glimepiride 4 mg 03/12/20 08:00 03/13/20 08:02 Amaryl PO Not Given QDDIAB [facility] Heparin Sodium (Porcine) 5,000 unit 03/12/20 10:00 03/12/20 21:29 Heparin SUB-Q 5,000 unit Q12HR [facility] Administration Sodium Chloride 1,000 mls @ 100 mls/hr 03/12/20 05:45 03/13/20 08:24 Nacl 0.9% 1000 Ml IV 100 mls/hr DIRECT [facility] Administration Insulin Human Lispro 0 unit 03/12/20 07:30 03/13/20 08:02 Humalog SUB-Q Not Given ACHS [facility] Protocol Magnesium Hydroxide 30 ml 03/12/20 05:32 Milk Of Magnesia PO Q4H PRN Constipation Metoclopramide HCl 5 mg 03/12/20 05:45 Reglan IV Q6H PRN Nausea And Vomiting Metoprolol Tartrate 25 mg 03/12/20 10:00 03/12/20 21:30 Metoprolol PO 25 mg BID [facility] Administration Ondansetron HCl 4 mg 03/12/20 05:32 Zofran IV Q8H PRN Nausea And Vomiting Senna 8.6 mg 03/12/20 05:32 Senokot PO Q12HR PRN Constipation Sodium Chloride 10 ml 03/12/20 10:00 03/12/20 21:30 Sodium Chloride Flush Syringe 10 Ml IV 10 ml BID [facility] Administration Sodium Chloride 10 ml 03/12/20 05:32 Sodium Chloride Flush Syringe 10 Ml IV PRN PRN LINE FLUSH Tramadol HCl 50 mg 03/12/20 05:59 Ultram PO Q4H PRN Pain, Moderate (4-6) Trazodone HCl 50 mg 03/12/20 05:59 Desyrel PO QHS PRN Insomnia
--- NOTE | 2020-03-13 09:19 | Progress Note ---
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 Plan to address problem: Check CT abdomen and pelvis without contrast Rule out malignancy, Urology consult if needed --History of fall Current Visit: Yes Status: Acute Plan to address problem: Patient reports a fall with knee pain and swelling X-ray left knee-showed no fracture but edema of soft tissue and effusion pain management PRN, physical therapy evaluation --Contusion, knee Current Visit: Yes Status: Acute Plan to address problem: Contusion of left knee-2/2 to a fall Supportive care, pain medications, PT x-ray of left knee negative for fracture --Metabolic acidosis Current Visit: Yes Status: Acute Plan to address problem: most likely 2/2 to ISH Continue IV hydration monitor kidney function --Hyperkalemia Current Visit: Yes Status: Acute Plan to address problem: Received kayexalete Insulin, dextrose and calcium chloride given in ED Mild improvement, follow today's lab --Type II diabetes/on oral hypoglycemics Current Visit: No Status: Acute Plan to address problem: Accu-Chek sliding scale coverage , ADA diet A1c 6.6, blood sugars are in the lower range We will hold glimepiride and closely monitor blood sugars D50 as needed --Hypoglycemic episode ; Current Visit: No Status: Acute . Plan to address problem: Hold glimepiride, sliding scale coverage ADA diet D50 as needed --HTN (hypertension) Current Visit: No Status: Acute Plan to address problem: Monitor blood pressure resume home antihypertensive Adjust bp med if needed --DVT prophylaxis Current Visit: Yes Status: Acute Plan to address problem: SQH Possible discharge in 1 to 2 days if stable History Interval history: I have seen and examined the patient at the bedside today Patient's chart and medications reviewed Patient feels better knee pain significantly improved Pending PT evaluation Vital signs noted Hospitalist Physical - Constitutional Vitals: Temp Pulse Resp BP Pulse Ox 98.4 F 66 18 156/81 96 03/13/20 08:41 03/13/20 08:41 03/13/20 08:41 03/13/20 08:41 03/13/20 08:41 General appearance: Present: mild distress, cachectic, disheveled - EENT Eyes: Present: PERRL, EOM intact - Neck Neck: Present: supple, normal ROM - Respiratory Respiratory effort: normal Respiratory: bilateral: diminished, negative: rales, rhonchi, wheezing - Cardiovascular Rhythm: regular Heart Sounds: Present: S1 & S2 - Extremities Extremities: no ischemia, No edema - Abdominal General gastrointestinal: soft, non-tender, non-distended, normal bowel sounds - Integumentary Integumentary: Present: clear, warm - Psychiatric Psychiatric: appropriate mood/affect, cooperative - Neurologic Neurologic: moves all extremities Results - Labs CBC & Chem 7: 03/11/20 17:41 03/13/20 08:38 Labs: Laboratory Last Values WBC 9.9 K/mm3 (4.5-11.0) 03/11/20 17:41 RBC 4.00 M/mm3 (3.65-5.03) 03/11/20 17:41 Hgb 12.3 gm/dl (11.8-15.2) 03/11/20 17:41 Hct 36.3 % (35.5-45.6) 03/11/20 17:41 MCV 91 fl (84-94) 03/11/20 17:41 MCH 31 pg (28-32) 03/11/20 17:41 MCHC 34 % (32-34) 03/11/20 17:41 RDW 15.4 % (13.2-15.2) H 03/11/20 17:41 Plt Count 213 K/mm3 (140-440) 03/11/20 17:41 Lymph % (Auto) 20.3 % (13.4-35.0) 03/11/20 17:41 [facility] % (Auto) 11.3 % (0.0-7.3) H 03/11/20 17:41 Eos % (Auto) 0.3 % (0.0-4.3) 03/11/20 17:41 Baso % (Auto) 0.5 % (0.0-1.8) 03/11/20 17:41 Lymph # (Auto) 2.0 K/mm3 (1.2-5.4) 03/11/20 17:41 [facility] # (Auto) 1.1 K/mm3 (0.0-0.8) H 03/11/20 17:41 Eos # (Auto) 0.0 K/mm3 (0.0-0.4) 03/11/20 17:41 Baso # (Auto) 0.0 K/mm3 (0.0-0.1) 03/11/20 17:41 Seg Neutrophils % 67.6 % (40.0-70.0) 03/11/20 17:41 Seg Neutrophils # 6.7 K/mm3 (1.8-7.7) 03/11/20 17:41 Sodium 140 mmol/L (137-145) 03/12/20 07:28 Potassium 5.5 mmol/L (3.6-5.0) H 03/12/20 07:28 Chloride 112.7 mmol/L (98-107) H 03/12/20 07:28 Carbon Dioxide 21 mmol/L (22-30) L 03/12/20 07:28 Anion Gap 12 mmol/L 03/12/20 07:28 BUN 23 mg/dL (9-20) H 03/12/20 07:28 Creatinine 1.7 mg/dL (0.8-1.3) H 03/12/20 07:28 Estimated GFR 50 ml/min 03/12/20 07:28 BUN/Creatinine Ratio 14 % 03/12/20 07:28 Glucose 109 mg/dL (75-100) H 03/12/20 07:28 POC Glucose 53 mg/dL (70-105) L 03/13/20 07:52 Hemoglobin A1c 6.6 % (4-6) H 03/12/20 05:32 Lactic Acid 0.60 mmol/L (0.7-2.0) L 03/11/20 17:41 Calcium 9.3 mg/dL (8.4-10.2) 03/12/20 07:28 Total Bilirubin 0.30 mg/dL (0.1-1.2) 03/12/20 07:28 AST 20 units/L (5-40) 03/12/20 07:28 ALT 17 units/L (7-56) 03/12/20 07:28 Alkaline Phosphatase 58 units/L (35-129) 03/12/20 07:28 Total Creatine Kinase 124 units/L (55-170) 03/12/20 02:55 Total Protein 6.0 g/dL (6.3-8.2) L 03/12/20 07:28 Albumin 2.7 g/dL (3.9-5) L 03/12/20 07:28 Albumin/Globulin Ratio 0.8 % 03/12/20 07:28 Triglycerides 71 mg/dL (2-149) 03/12/20 05:32 Cholesterol 107 mg/dL (50-199) 03/12/20 05:32 LDL Cholesterol Direct 50 mg/dL (50-130) 03/12/20 05:32 HDL Cholesterol 47 mg/dL (40-59) 03/12/20 05:32 Cholesterol/HDL Ratio 2.27 % 03/12/20 05:32 Urine Color Yellow (Yellow) 03/12/20 17:42 Urine Turbidity Clear (Clear) 03/12/20 17:42 Urine pH 7.0 (5.0-7.0) 03/12/20 17:42 Ur Specific [place] 1.013 (1.003-1.030) 03/12/20 17:42 Urine Protein >500 mg/dL (Negative) 03/12/20 17:42 Urine Glucose (UA) Neg mg/dL (Negative) 03/12/20 17:42 Urine Ketones Neg mg/dL (Negative) 03/12/20 17:42 Urine Blood Neg (Negative) 03/12/20 17:42 Urine Nitrite Neg (Negative) 03/12/20 17:42 Urine Bilirubin Neg (Negative) 03/12/20 17:42 Urine Urobilinogen < 2.0 mg/dL (<2.0) 03/12/20 17:42 Ur Leukocyte Esterase Neg (Negative) 03/12/20 17:42 Urine WBC (Auto) 1.0 /HPF (0.0-6.0) 03/12/20 17:42 Urine RBC (Auto) 8.0 /HPF (0.0-6.0) 03/12/20 17:42 U Epithel Cells (Auto) < 1.0 /HPF (0-13.0) 03/12/20 17:42 Hyaline Casts 1 /LPF 03/12/20 17:42 Urine Mucus Few /HPF 03/12/20 17:42 Urine Creatinine 75.7 mg/dL (0.1-20.0) H 03/12/20 17:42 Urine Creatinine 76.5 mg/dL (0.1-20.0) H 03/12/20 17:42 Protein/Creatinin Ratio 4.61 03/12/20 17:42 Urine Sodium 137 mmol/L 03/12/20 17:42 Urine Total Protein 353 mg/dL (5-11.8) H 03/12/20 17:42 Haji/IV: Voiding Method Toilet IV Catheter Type [Left Forearm INT / Saline Lock ] IV Catheter Type [Left Peripheral IV Antecubital] Active Medications - Current Medications Current Medications: Generic Name Dose Route Start Last Admin Trade Name Freq PRN Reason Stop Dose Admin Acetaminophen 650 mg 03/12/20 05:32 Tylenol PO Q4H PRN Pain MILD(1-3)/Fever >100.5/ANGLIN Al Hydrox/Mg Hydrox/Simethicone 30 ml 03/12/20 05:32 Alum-Mag Hydrox-Simeth 017-743-03dw/5ml PO Q4H PRN Indigestion Albuterol 2.5 mg 03/12/20 05:32 Proventil IH Q4HRT PRN Shortness Of Breath Dextrose 50 ml 03/12/20 05:32 12 08:18 D50w (25gm) Syringe IV 50 ml Q30MIN PRN Administration Hypoglycemia Protocol Famotidine 20 mg 03/12/20 10:00 03/12/20 10:03 Pepcid PO 20 mg DAILY KARLEY Administration Gabapentin 300 mg 03/12/20 10:00 03/12/20 21:29 Gabapentin PO 300 mg BID KARLEY Administration Glimepiride 4 mg 03/12/20 08:00 03/13/20 08:02 Amaryl PO Not Given QDDIAB KARLEY Heparin Sodium (Porcine) 5,000 unit 03/12/20 10:00 03/12/20 21:29 Heparin SUB-Q 5,000 unit Q12HR KARLEY Administration Sodium Chloride 1,000 mls @ 100 mls/hr 03/12/20 05:45 03/13/20 08:24 Nacl 0.9% 1000 Ml IV 100 mls/hr DIRECT KARLEY Administration Insulin Human Lispro 0 unit 03/12/20 07:30 03/13/20 08:02 Humalog SUB-Q Not Given ACHS KARLEY Protocol Magnesium Hydroxide 30 ml 03/12/20 05:32 Milk Of Magnesia PO Q4H PRN Constipation Metoclopramide HCl 5 mg 03/12/20 05:45 Reglan IV Q6H PRN Nausea And Vomiting Metoprolol Tartrate 25 mg 03/12/20 10:00 03/12/20 21:30 Metoprolol PO 25 mg BID KARLEY Administration Ondansetron HCl 4 mg 03/12/20 05:32 Zofran IV Q8H PRN Nausea And Vomiting Senna 8.6 mg 03/12/20 05:32 Senokot PO Q12HR PRN Constipation Sodium Chloride 10 ml 03/12/20 10:00 03/12/20 21:30 Sodium Chloride Flush Syringe 10 Ml IV 10 ml BID KARLEY Administration Sodium Chloride 10 ml 03/12/20 05:32 Sodium Chloride Flush Syringe 10 Ml IV PRN PRN LINE FLUSH Tramadol HCl 50 mg 03/12/20 05:59 Ultram PO Q4H PRN Pain, Moderate (4-6) Trazodone HCl 50 mg 03/12/20 05:59 Desyrel PO QHS PRN Insomnia
[2020-03-13] MEDS: FAMOTIDINE 20 MG TAB PO SCH (10:42)
[2020-03-13] MEDS: GABAPENTIN 300 MG CAP PO SCH ×2 (10:42→22:28)
[2020-03-13 10:43] LABS: BUN/Creatinine Ratio 11; Blood Urea Nitrogen 16 mg/dL (9-20); Calcium 7.8 mg/dL (8.4-10.2); Hemolysis Index 5
[2020-03-13] MEDS: HEPARIN 5,000 UNIT/1 ML VIAL SUB-Q SCH ×2 (10:43→22:28)
[2020-03-13] MEDS: METOPROLOL TARTRATE 25 MG TAB PO SCH ×2 (10:43→22:28)
--- NOTE | 2020-03-13 12:09 | Cat Scan Report ---
CT OF THE ABDOMEN AND PELVIS WITHOUT CONTRAST INDICATION / CLINICAL INFORMATION: Left renal mass seen on yesterday's renal ultrasound. TECHNIQUE: All CT scans at this location are performed using CT dose reduction for ALARA by means of automated e xposure control. COMPARISON: Renal ultrasound 03/12/[address] the abdomen and pelvis 05/18/19. FINDINGS: ABDOMEN: There is a 1 cm simple cyst-appearing lesion in the upper pole of the left kidney medially, unchanged. I do not identify a solid renal mass. Mild bilateral nonobstructive nephrolithiasis has no t changed. There is layering calcific density in the dependent portion of the gallbladder. Localized multifocal calcifications in the pancreatic tail are stable. I do not identify a pancreatic mass. The liver, spleen, bile ducts and adrenal glands are normal. There is moderate localized soft tissue thickening in the right colon probably in the ascending colon. There is mild associated soft tissue s tranding in the pericolonic fat. These findings are new since the prior study. It is difficult to exc lude localized pneumatosis in this region. I see no evidence of free air or bowel obstruction. PELVIS: There is a left hip prosthesis causing significant streak artifact. The distal ureters, urina ry bladder and prostate gland are unremarkable. I see no evidence of appendicitis. No abnormal mass o r fluid collection is seen. I do not identify a hernia. There is mild spondylosis. IMPRESSION: 1. Localized wall thickening involving the right colon with soft tissue stranding in the pericolonic fat and possible localized pneumatosis. No evidence of bowel obstruction or free air. No abnormality was present in this region on the prior exam and the findings are probably related to localized colit is rather than neoplasm. 2. No evidence of a solid left renal mass is seen on this noncontrast CT. Signer Name: Wild Buckner MD Signed: 03/13/2020 12:05 PM Workstation Name: [id number]
[2020-03-14 06:41] LABS: Calcium 7.8 mg/dL (8.4-10.2)
[2020-03-14] MEDS: INSULIN LISPRO 100 UNIT/ML VIAL 3 mL SUB-Q SCH ×2 (08:34→12:44)
[2020-03-14] MEDS: GLIMEPIRIDE 4 MG TAB PO SCH (09:46)
[2020-03-14] MEDS: GABAPENTIN 300 MG CAP PO SCH (09:46)
[2020-03-14] MEDS: METOPROLOL TARTRATE 25 MG TAB PO SCH (09:46)
[2020-03-14] MEDS: FAMOTIDINE 20 MG TAB PO SCH (09:46)
[2020-03-14] MEDS: HEPARIN 5,000 UNIT/1 ML VIAL SUB-Q SCH (09:47)
--- NOTE | 2020-03-14 11:50 | Progress Note ---
Assessment and Plan Assessment: ISH (acute kidney injury) Status post fall Contusion, knees Hyperkalemia Diabetes HTN (hypertension) DVT prophylaxis Plan: Renal labs reviewed. Serum creatinine 1.5 today, yesterday's was 1.4, non- oliguric According to patient he has CKD but does not know baseline, serum creatinine 05/19/2019 was 1.5 Urine studies reviewed, has 4 grams proteinuria Obtain SPEP and UPEP Renal US negative for obstruction but noted for a mass on the L kidney, will need urology evaluation as an outpatient Renally dose medications Strict I&O's monitoring Obtain daily weights Continue to monitor If discharge, patient is to f/u with us in 2 weeks of discharge at [facility] located at [address] [place] [address]. Subjective Date of service: 03/14/20 Principal diagnosis: CKD and hyperkalemia Interval history: Patient seen lying in bed. Reviewed renal labs. Objective - Vital Signs Vital signs: Vital Signs - 12hr 03/14/20 03/14/20 03/14/20 00:04 01:00 05:18 Temperature 98.7 F 98.5 F Pulse Rate 54 L 54 L 56 L Respiratory 18 18 Rate Blood Pressure 149/75 164/80 O2 Sat by Pulse 98 98 Oximetry 03/14/20 03/14/20 07:41 09:46 Temperature 98.3 F Pulse Rate 52 L 52 L Respiratory 18 Rate Blood Pressure 165/73 165/73 O2 Sat by Pulse 98 Oximetry - General Appearance General appearance: well-developed, fatigue EENT: ATNC Neck: no JVD, supple Respiratory: Present: Decreased Breath Sounds Cardiology: S1S2 Gastrointestinal: normoactive bowel sounds Integumentary: warm and dry Neurologic: alert and oriented x3 Musculoskeletal: joint swelling Psychiatric: cooperative - Lab 03/11/20 17:41 03/14/20 05:40 Most recent lab results Calcium 7.8 mg/dL (8.4-10.2) L 03/14/20 05:40 Urine Creatinine 75.7 mg/dL (0.1-20.0) H 03/12/20 17:42 Urine Creatinine 76.5 mg/dL (0.1-20.0) H 03/12/20 17:42 Urine Sodium 137 mmol/L 12/05/20 17:42 Urine Total Protein 353 mg/dL (5-11.8) H 03/12/20 17:42 Medications & Allergies - Medications Allergies/Adverse Reactions: Allergies latex Allergy (Intermediate, Verified 03/11/20 16:25) Hives antioxidant multivitamin combo. no. [From I-Caps] Allergy (Verified 03/11/20 16:25) Rash codeine Allergy (Verified 03/11/20 16:25) Hives docosahexanoic acid [From I-Caps] Allergy (Verified 03/11/20 16:25) Rash PT STATES HANDS BLISTERED, RASH, ITCHING eicosapentaenoic acid [From I-Caps] Allergy (Verified 03/11/20 16:25) Rash lutein [From I-Caps] Allergy (Verified 03/11/20 16:25) Rash omega-3 fatty acids [From I-Caps] Allergy (Verified 03/11/20 16:25) Rash Sulfa (Sulfonamide Antibiotics) Allergy (Verified 03/11/20 16:25) Rash zeaxanthin [From I-Caps] Allergy (Verified 03/11/20 16:25) Rash Home Medications: Home Medications Medication Instructions Recorded Confirmed Last Taken Type Esomeprazole Magnesium [NexIUM] 40 mg PO QDAY 11/01/16 05/19/19 11/21/16 History Gabapentin 800 mg PO BID 11/01/16 05/19/19 05/17/19 22:00 History Latanoprost 0.005% 1 drop OU DAILY 11/01/16 05/19/19 05/17/19 08:00 History Glimepiride 4 mg PO DAILY 05/19/19 05/19/19 Unknown History Januvia 100 mg PO DAILY 05/19/19 05/19/19 Unknown History NIFEdipine 30 mg PO DAILY 05/19/19 05/19/19 Unknown History Pepcid 20 mg PO BID 05/19/19 05/19/19 Unknown History Rosuvastatin (Nf) 40 mg PO DAILY 05/19/19 05/19/19 Unknown History hydrALAZINE [Apresoline TAB] 25 mg PO BID #60 tablet 03/14/20 Unknown Rx Active Medications: Generic Name Dose Route Start Last Admin Trade Name Freq PRN Reason Stop Dose Admin Acetaminophen 650 mg 03/12/20 05:32 Tylenol PO Q4H PRN Pain MILD(1-3)/Fever >100.5/ANGLIN Al Hydrox/Mg Hydrox/Simethicone 30 ml 03/12/20 05:32 Alum-Mag Hydrox-Simeth 507-961-30lx/5ml PO Q4H PRN Indigestion Albuterol 2.5 mg 03/12/20 05:32 Proventil IH Q4HRT PRN Shortness Of Breath Dextrose 50 ml 03/12/20 05:32 03/13/20 08:18 D50w (25gm) Syringe IV 50 ml Q30MIN PRN Administration Hypoglycemia Protocol Famotidine 20 mg 03/12/20 10:00 03/14/20 09:46 Pepcid PO 20 mg DAILY KARLEY Administration Gabapentin 300 mg 03/12/20 10:00 03/14/20 09:46 Gabapentin PO 300 mg BID KARLEY Administration Glimepiride 4 mg 03/12/20 08:00 03/14/20 09:46 Amaryl PO 4 mg QDDIAB KARLEY Administration Heparin Sodium (Porcine) 5,000 unit 03/12/20 10:00 03/14/20 09:47 Heparin SUB-Q 5,000 unit Q12HR KARLEY Administration Sodium Chloride 1,000 mls @ 100 mls/hr 03/12/20 05:45 03/13/20 17:44 Nacl 0.9% 1000 Ml IV 100 mls/hr DIRECT KARLEY Administration Insulin Human Lispro 0 unit 03/12/20 07:30 03/14/20 08:34 Humalog SUB-Q Not Given ACHS KARLEY Protocol Magnesium Hydroxide 30 ml 03/12/20 05:32 Milk Of Magnesia PO Q4H PRN Constipation Metoclopramide HCl 5 mg 03/12/20 05:45 Reglan IV Q6H PRN Nausea And Vomiting Metoprolol Tartrate 25 mg 03/12/20 10:00 03/14/20 09:46 Metoprolol PO 25 mg BID KARLEY Administration Ondansetron HCl 4 mg 03/12/20 05:32 Zofran IV Q8H PRN Nausea And Vomiting Senna 8.6 mg 03/12/20 05:32 Senokot PO Q12HR PRN Constipation Sodium Chloride 10 ml 03/12/20 10:00 03/13/20 22:29 Sodium Chloride Flush Syringe 10 Ml IV 10 ml BID KARLEY Administration Sodium Chloride 10 ml 03/12/20 05:32 Sodium Chloride Flush Syringe 10 Ml IV PRN PRN LINE FLUSH Tramadol HCl 50 mg 03/12/20 05:59 Ultram PO Q4H PRN Pain, Moderate (4-6) Trazodone HCl 50 mg 03/12/20 05:59 Desyrel PO QHS PRN Insomnia
--- NOTE | 2020-03-14 12:20 | Discharge Summary ---
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 Plan to address problem: Check CT abdomen and pelvis without contrast Rule out malignancy, Urology consult if needed --History of fall Current Visit: Yes Status: Acute Plan to address problem: Patient reports a fall with knee pain and swelling X-ray left knee-showed no fracture but edema of soft tissue and effusion pain management PRN, physical therapy evaluation --Contusion, knee Current Visit: Yes Status: Acute Plan to address problem: Contusion of left knee-2/2 to a fall Supportive care, pain medications, PT x-ray of left knee negative for fracture --Metabolic acidosis Current Visit: Yes Status: Acute Plan to address problem: most likely 2/2 to ISH Continue IV hydration monitor kidney function --Hyperkalemia Current Visit: Yes Status: Acute Plan to address problem: Received kayexalete Insulin, dextrose and calcium chloride given in ED Mild improvement, follow today's lab --Type II diabetes/on oral hypoglycemics Current Visit: No Status: Acute Plan to address problem: Accu-Chek sliding scale coverage , ADA diet A1c 6.6, blood sugars are in the lower range We will hold glimepiride and closely monitor blood sugars D50 as needed --Hypoglycemic episode ; Current Visit: No Status: Acute . Plan to address problem: Hold glimepiride, sliding scale coverage ADA diet D50 as needed --HTN (hypertension) Current Visit: No Status: Acute Plan to address problem: Monitor blood pressure resume home antihypertensive Adjust bp med if needed --DVT prophylaxis Current Visit: Yes Status: Acute Plan to address problem: [facility] Disposition: DC-01 TO HOME OR SELFCARE Time spent for discharge: 32 min Core Measure Documentation - Palliative Care Palliative Care/ Comfort Measures: Not Applicable - Core Measures Any of the following diagnoses?: none Exam - Constitutional Vitals: Temp Pulse Resp BP Pulse Ox 98.3 F 52 L 18 165/73 98 03/14/20 07:41 03/14/20 09:46 03/14/20 07:41 03/14/20 09:46 03/14/20 07:41 General appearance: Present: no acute distress, well-nourished - EENT Eyes: Present: PERRL, EOM intact - Neck Neck: Present: supple, normal ROM - Respiratory Respiratory effort: normal Respiratory: bilateral: diminished, negative: rales, rhonchi, wheezing - Cardiovascular Rhythm: regular Heart Sounds: Present: S1 & S2 - Extremities Extremities: no ischemia, No edema - Abdominal General gastrointestinal: Present: soft, non-tender, non-distended, normal bowel sounds - Integumentary Integumentary: Present: clear, warm - Musculoskeletal Musculoskeletal: strength equal bilaterally, generalized weakness - Psychiatric Psychiatric: appropriate mood/affect, cooperative - Neurologic Neurologic: CNII-XII intact, moves all extremities Plan Activity: advance as tolerated, fall precautions Diet: diabetic Additional Instructions: You have worsening symptoms contact MD or go to emergency room. Need to follow with nephrology, urology and primary care physician. Fall precautions Plan of Treatment: Patient for home PT with [facility] [phone] Follow up with: ARIES PAGAN MD [Primary Care Provider] - 3-5 Days ДМИТРИЙ MURCIA MD [Staff Physician] - 7 Days PAVITHRA JUNG MD [Staff Physician] - 14 Days Prescriptions: hydrALAZINE [Apresoline TAB] 25 mg PO BID #60 tablet
[2020-03-14] MEDS ORDERED: hydrALAZINE 25 MG TAB PO SCH (14:00)
[2020-03-14 14:06] VITALS: BP 165/54
== END 2020-03-14 15:30 | disposition home or self-care (01) ==
LOC: ED 16:02 → 4A 03-12 03:44
PROVIDERS: ADMIT Internal Medicine Geriatric Medicine; ATTEND Internal Medicine
DX: S80.02XA Contusion of left knee, initial encounter (principal); N17.9 Acute kidney failure, unspecified; E78.5 Hyperlipidemia, unspecified; I10 Essential (primary) hypertension; E87.2 Acidosis; E87.5 Hyperkalemia; N28.89 Other specified disorders of kidney and ureter; E11.649 Type 2 diabetes mellitus with hypoglycemia without coma; F17.200 Nicotine dependence, unspecified, uncomplicated; Z86.73 Personal history of transient ischemic attack (TIA), and cerebral infarction without residual deficits; Z79.84 Long term (current) use of oral hypoglycemic drugs; Z79.899 Other long term (current) drug therapy; Z88.5 Allergy status to narcotic agent; Z88.2 Allergy status to sulfonamides; Z88.8 Allergy status to other drugs, medicaments and biological substances; Z91.040 Latex allergy status; W01.198A Fall on same level from slipping, tripping and stumbling with subsequent striking against other object, initial encounter; Y93.89 Activity, other specified; Y92.9 Unspecified place or not applicable
CPT/HCPCS: 36415; 71045; 73562; 74176; 76770; 80048; 80053; 80061; 81001; 82140; 82550; 82570; 82962; 83036; 84156; 84166; 84300; 85025; 96361; 96372; 96374; 96375; 96376; 97116; 97162; 99291; G0378; J1644; J7030; J1815

== ENCOUNTER 2021-02-22 11:56 | Emergency (ER) | payer MEDICARE ==
[2021-02-22 12:02] VITALS: BP 131/76
--- NOTE | 2021-02-22 13:04 | Emergency Department Report ---
ED ENT HPI - General Chief complaint: Dental/Oral Stated complaint: FACIAL SWELLING Source: patient, EMS Mode of arrival: Wheelchair Limitations: No Limitations - History of Present Illness Initial comments: The patient was evaluated in the emergency department for symptoms described in the history of present illness. He/she was evaluated in the context of the global COVID-19 pandemic, which necessitated consideration that the patient might be at risk for infection with the virus that causes COVID-19. Institutional protocols and algorithms that pertain to the evaluation of patients at risk for COVID-19 are in a state of rapid change based on information released by regulatory bodies including the CDC and federal and state organizations. These policies and algorithms were followed during the patient's care in the emergency department. Please note that these policies, procedures and recommendations changed on a rapid basis. 61-year-old -Bur[place] male presents to the emergency room for left side upper jaw swelling. Patient denies any pain. He does have a history of high blood pressure, diabetes, end-stage renal disease stage III. He is followed by Dr. Sharona Infante. Denies any fever chills and is compliant with all meds. Patient states that he does have some drainage at times from his mouth. MD complaint: tooth pain - Related Data Home Medications Medication Instructions Recorded Confirmed Last Taken Esomeprazole Magnesium [NexIUM] 40 mg PO QDAY 11/01/16 05/19/19 11/21/16 Gabapentin 800 mg PO BID 11/01/16 05/19/19 05/17/19 22:00 Latanoprost 0.005% 1 drop OU DAILY 11/01/16 05/19/19 05/17/19 08:00 Glimepiride 4 mg PO DAILY 05/19/19 05/19/19 Unknown Januvia 100 mg PO DAILY 05/19/19 05/19/19 Unknown NIFEdipine 30 mg PO DAILY 05/19/19 05/19/19 Unknown Pepcid 20 mg PO BID 05/19/19 05/19/19 Unknown Rosuvastatin (Nf) 40 mg PO DAILY 05/19/19 05/19/19 Unknown Previous Rx's Medication Instructions Recorded Last Taken Type hydrALAZINE [Apresoline TAB] 25 mg PO BID #60 tablet 03/14/20 Unknown Rx Chlorhexidine Mouthwash [Peridex] 15 ml MM BID #1 bottle 02/22/21 Unknown Rx Clindamycin [Clindamycin CAP] 300 mg PO Q8H 7 Days #21 cap 02/22/21 Unknown Rx Allergies Allergy/AdvReac Type Severity Reaction Status Date / Time latex Allergy Intermediate Hives Verified 03/11/20 16:25 antioxidant multivitamin Allergy Rash Verified 03/11/20 16:25 combo. no. [From I-Caps] codeine Allergy Hives Verified 03/11/20 16:25 docosahexanoic acid Allergy Rash Verified 03/11/20 16:25 [From I-Caps] eicosapentaenoic acid Allergy Rash Verified 03/11/20 16:25 [From I-Caps] lutein [From I-Caps] Allergy Rash Verified 03/11/20 16:25 omega-3 fatty acids Allergy Rash Verified 03/11/20 16:25 [From I-Caps] Sulfa (Sulfonamide Allergy Rash Verified 03/11/20 16:25 Antibiotics) zeaxanthin [From I-Caps] Allergy Rash Verified 03/11/20 16:25 ED Dental HPI - General Chief complaint: Dental/Oral Stated complaint: FACIAL SWELLING Source: patient, EMS Mode of arrival: Wheelchair Limitations: No Limitations - Related Data Home Medications Medication Instructions Recorded Confirmed Last Taken Esomeprazole Magnesium [NexIUM] 40 mg PO QDAY 11/01/16 05/19/19 11/21/16 Gabapentin 800 mg PO BID 11/01/16 05/19/19 05/17/19 22:00 Latanoprost 0.005% 1 drop OU DAILY 11/01/16 05/19/19 05/17/19 08:00 Glimepiride 4 mg PO DAILY 05/19/19 05/19/19 Unknown Januvia 100 mg PO DAILY 05/19/19 05/19/19 Unknown NIFEdipine 30 mg PO DAILY 05/19/19 05/19/19 Unknown Pepcid 20 mg PO BID 05/19/19 05/19/19 Unknown Rosuvastatin (Nf) 40 mg PO DAILY 05/19/19 05/19/19 Unknown Previous Rx's Medication Instructions Recorded Last Taken Type hydrALAZINE [Apresoline TAB] 25 mg PO BID #60 tablet 03/14/20 Unknown Rx Chlorhexidine Mouthwash [Peridex] 15 ml MM BID #1 bottle 02/22/21 Unknown Rx Clindamycin [Clindamycin CAP] 300 mg PO Q8H 7 Days #21 cap 02/22/21 Unknown Rx Allergies Allergy/AdvReac Type Severity Reaction Status Date / Time latex Allergy Intermediate Hives Verified 03/11/20 16:25 antioxidant multivitamin Allergy Rash Verified 03/11/20 16:25 combo. no. [From I-Caps] codeine Allergy Hives Verified 03/11/20 16:25 docosahexanoic acid Allergy Rash Verified 03/11/20 16:25 [From I-Caps] eicosapentaenoic acid Allergy Rash Verified 03/11/20 16:25 [From I-Caps] lutein [From I-Caps] Allergy Rash Verified 03/11/20 16:25 omega-3 fatty acids Allergy Rash Verified 03/11/20 16:25 [From I-Caps] Sulfa (Sulfonamide Allergy Rash Verified 03/11/20 16:25 Antibiotics) zeaxanthin [From I-Caps] Allergy Rash Verified 03/11/20 16:25 ED Review of Systems ROS: Stated complaint: FACIAL SWELLING Other details as noted in HPI Comment: All other systems reviewed and negative ED Past Medical Hx - Past Medical History Hx Hypertension: Yes Hx CVA: Yes Hx Congestive Heart Failure: No Hx Diabetes: Yes Hx GERD: Yes Hx Sickle Cell Disease: No Hx Arthritis: Yes (LEFT HIP SURGERY) Hx Asthma: No Hx COPD: No Hx Tuberculosis: No Hx HIV: No Additional medical history: Blood clot around heart - Surgical History Additional Surgical History: Left Hip surgery, Hernia repair - Social History Smoking Status: Current Some Day Smoker - Medications Home Medications: Home Medications Medication Instructions Recorded Confirmed Last Taken Type Esomeprazole Magnesium [NexIUM] 40 mg PO QDAY 11/01/16 05/19/19 11/21/16 History Gabapentin 800 mg PO BID 11/01/16 05/19/19 05/17/19 22:00 History Latanoprost 0.005% 1 drop OU DAILY 11/01/16 05/19/19 05/17/19 08:00 History Glimepiride 4 mg PO DAILY 05/19/19 05/19/19 Unknown History Januvia 100 mg PO DAILY 05/19/19 05/19/19 Unknown History NIFEdipine 30 mg PO DAILY 05/19/19 05/19/19 Unknown History Pepcid 20 mg PO BID 05/19/19 05/19/19 Unknown History Rosuvastatin (Nf) 40 mg PO DAILY 05/19/19 05/19/19 Unknown History hydrALAZINE [Apresoline TAB] 25 mg PO BID #60 tablet 03/14/20 Unknown Rx Chlorhexidine Mouthwash [Peridex] 15 ml MM BID #1 bottle 02/22/21 Unknown Rx Clindamycin [Clindamycin CAP] 300 mg PO Q8H 7 Days #21 cap 02/22/21 Unknown Rx ED Physical Exam - General Limitations: No Limitations General appearance: alert, in no apparent distress - Head Head exam: Present: atraumatic, normocephalic - Eye Eye exam: Present: normal appearance - ENT ENT exam: Present: mucous membranes moist - Expanded ENT Exam Expanded Teeth exam: Present: dental caries, dental tenderness #, gingival enlargement - Neck Neck exam: Present: normal inspection - Respiratory Respiratory exam: Present: normal lung sounds bilaterally. Absent: respiratory distress - Cardiovascular Cardiovascular Exam: Present: regular rate, normal rhythm. Absent: systolic murmur, diastolic murmur, rubs, gallop - GI/Abdominal GI/Abdominal exam: Present: soft, normal bowel sounds - Rectal Rectal exam: Present: deferred - Extremities Exam Extremities exam: Present: normal inspection - Back Exam Back exam: Present: normal inspection - Neurological Exam Neurological exam: Present: alert, oriented X3 - Psychiatric Psychiatric exam: Present: normal affect, normal mood - Skin Skin exam: Present: warm, dry, intact, normal color. Absent: rash ED Course Vital Signs 02/22/21 11:59 Temperature 98.7 F Pulse Rate 62 Respiratory 16 Rate Blood Pressure 131/76 [Left] O2 Sat by Pulse 100 Oximetry ED Medical Decision Making - Medical Decision Making 61-year-old -Burm[place] male presents to the emergency room for left side upper jaw swelling. Patient denies any pain. He does have a history of high blood pressure, diabetes, end-stage renal disease stage III. He is followed by Dr. Sharona Infante. Denies any fever chills and is compliant with all meds. Patient states that he does have some drainage at times from his mouth. Patient be placed on clindamycin Peridex he can take Tylenol ibuprofen for pain. Follow-up with a dentist. Critical care attestation.: If time is entered above; I have spent that time in minutes in the direct care of this critically ill patient, excluding procedure time. ED Disposition Clinical Impression: Dental abscess, Trench mouth, Caries involving multiple surfaces of tooth Disposition: 01 HOME / SELF CARE / HOMELESS Is pt being admited?: No Does the pt Need Aspirin: No Condition: Stable Additional Instructions: Complete antibiotics as prescribed. Use the Peridex as prescribed. Follow-up with the oral surgeon I have listed their information below. Prescriptions: Clindamycin [Clindamycin CAP] 300 mg PO Q8H 7 Days #21 cap Chlorhexidine Mouthwash [Peridex] 15 ml MM BID #1 bottle Referrals: Oral, surgery [Other] - 3-5 Days Forms: Work/School Release Form(ED) Time of Disposition: 13:19
== END 2021-02-22 14:18 | disposition home or self-care (01) ==
LOC: ED 11:56
DX: K04.7 Periapical abscess without sinus (principal); A69.1 Other Vincent's infections; K02.9 Dental caries, unspecified; I10 Essential (primary) hypertension; E11.9 Type 2 diabetes mellitus without complications; K21.9 Gastro-esophageal reflux disease without esophagitis; M19.90 Unspecified osteoarthritis, unspecified site; F17.200 Nicotine dependence, unspecified, uncomplicated; Z88.5 Allergy status to narcotic agent; Z88.2 Allergy status to sulfonamides; Z91.040 Latex allergy status; Z88.8 Allergy status to other drugs, medicaments and biological substances; Z79.899 Other long term (current) drug therapy
CPT/HCPCS: 99283

== ENCOUNTER 2021-06-14 06:49 | Day surgery (SDC) | payer MEDICARE ==
[~2021-06-14 06:49] MED LIST changes: +MIDAZOLAM 2 MG/2 ML INJ IV NR; +SODIUM CHLORIDE 0.9% 1000 ML 1,000 ML IV SCH; -TETRACAINE 0.5% OS SCH; +ceFAZolin/STERILE WATER 2 GM/20 ML SYRINGE IV NR; +fentaNYL 100 MCG/2 ML INJ IV PRN
[2021-06-14] MEDS ORDERED: LIDOCAINE (1%) 10 MG/1 ML VIAL 20 ML MDV ONE (07:15)
[2021-06-14] MEDS ORDERED: BUPIVACAINE/PF (0.5%) 5 MG/1 ML 30 ML VIAL INFILTRATI ONE ×2 (07:15→09:30)
[2021-06-14] MEDS ORDERED: SODIUM CHLORIDE P/F VIAL 10 ML 10 ML ONE (07:15)
[2021-06-14] MEDS ORDERED: HEPARIN 10,000 UNITS/10 ML VIAL ONE (07:15)
[2021-06-14] MEDS ORDERED: rifAMPin 600 MG VIAL ONE (07:16)
[2021-06-14] MEDS ORDERED: SODIUM CHLORIDE 0.9% 250ML 250 ML ONE (07:16)
[2021-06-14] MEDS ORDERED: SODIUM CHLORIDE 0.9% 500 ML 500 ML ONE (07:16)
[2021-06-14] MEDS ORDERED: propofoL 200 MG/20 ML VIAL IV ONE (07:37)
[2021-06-14] MEDS ORDERED: ONDANSETRON 4 MG/2 ML INJ ONE (07:37)
[2021-06-14] MEDS ORDERED: fentaNYL 100 MCG/2 ML INJ ONE (07:37)
[2021-06-14] MEDS ORDERED: LIDOCAINE MPF (2%) 20 MG/1 ML VIAL 5 ML ONE (07:37)
[2021-06-14 07:44] LABS: Hematocrit 28.9 % (35.5-45.6); Hemoglobin 9.6 gm/dl (11.8-15.2); Mean Corpuscular HGB Conc 33 % (32-34); Mean Corpuscular Volume 90 fl (84-94); Platelet Count 289 K/mm3 (140-440); Red Blood Count 3.23 M/mm3 (3.65-5.03); Red Cell Distribution Width 15.1 % (13.2-15.2)
--- NOTE | 2021-06-14 07:49 | Anesthesia Consultation ---
Anesthesia Consult and Med Hx Date of service: 06/14/21 - Airway Anesthetic Teeth Evaluation: Good ROM Head & Neck: Adequate Mental/Hyoid Distance: Adequate Mallampati Class: Class III Intubation Access Assessment: Possibly Difficult - Pre-Operative Health Status ASA Pre-Surgery Classification: ASA4 Proposed Anesthetic Plan: MAC Nerve Block: Supraclavicular - Pulmonary Hx Smoking: Yes (former smoker quit 1 yr) Hx Respiratory Symptoms: No - Cardiovascular System Hx Hypertension: Yes (took antihypertensives this morning) Hx Heart Attack/AMI: No Hx Percutaneous Transluminal Coronary Angioplasty (PTCA): No Hx Cardia Arrhythmia: No Hx Peripheral Vascular Disease: Yes (took ASA this morning) - Central Nervous System Hx Neuromuscular Disorder: No (requires assistance with ADLs, nonambulatory) CVA: Yes (20yrs ago; no deficits) - Endocrine Hx Renal Disease: Yes (CKD 5; not yet on HD) Hx Liver Disease: No Hx Non-Insulin Dependent Diabetes: Yes - Hematic Hx Anemia: Yes - Additional Comments Anesthesia Medical History Comments: No hx anesthetic complications.
--- NOTE | 2021-06-14 07:49 | Anesthesia Day of Surgery ---
Anesthesia Day of Surgery - Day of Surgery Patient Examined: Yes Patient H&P Reviewed: Yes Patient is NPO: Yes Beta Blockers: Yes
[2021-06-14] MEDS ORDERED: BUPIVACAINE/PF (0.25%) 2.5 MG/ML 30 ML VIAL INFILTRATI ONE (07:50)
[2021-06-14 07:57] LABS: Calcium 9.4 mg/dL (8.4-10.2)
--- NOTE | 2021-06-14 07:59 | Short Stay Summary ---
Short Stay Documentation Date of service: 06/14/21 Narrative H&P: The patient is a 61-year-old male with a history of diabetes, peripheral vascular disease, and chronic renal sufficiency who was not yet on hemodialysis however his renal insufficiency has progressed to the point that he will likely require hemodialysis in the near future. He was recently scheduled for intervention of his peripheral vascular disease however upon reviewing his labs his creatinine was 5.3 with a BUN greater than 70. The procedure was canceled at that time and I spoke with his candy starch mold printer Dr. Kapadia who informed me that she had actually sent a referral to our office for creation of an arteriovenous graft. At that time the patient was scheduled for this procedure. The patient is right-hand dominant so I discussed the plan for creation of a left arm arteriovenous graft. He was given the risk, benefits, and alternative procedures and consented to the procedure. - History Past Medical History: CAD, diabetes, hypertension, hyperlipidemia, PVD, renal failure Past Surgical History: total hip replacement, Other (Right lower extremity endovascular revascularization) - Allergies and Medications Current Medications: Allergies latex Allergy (Intermediate, Verified 06/12/21 12:18) Hives antioxidant multivitamin combo. no. [From I-Caps] Allergy (Verified 06/12/21 12:18) Rash codeine Allergy (Verified 06/12/21 12:18) Hives docosahexanoic acid [From I-Caps] Allergy (Verified 06/12/21 12:18) Rash PT STATES HANDS BLISTERED, RASH, ITCHING eicosapentaenoic acid [From I-Caps] Allergy (Verified 06/12/21 12:18) Rash lutein [From I-Caps] Allergy (Verified 06/12/21 12:18) Rash omega-3 fatty acids [From I-Caps] Allergy (Verified 06/12/21 12:18) Rash Sulfa (Sulfonamide Antibiotics) Allergy (Verified 06/12/21 12:18) Rash zeaxanthin [From I-Caps] Allergy (Verified 06/12/21 12:18) Rash Home Medications Medication Instructions Recorded Confirmed Last Taken Type Gabapentin 100 mg PO HS 11/01/16 06/12/21 05/17/19 22:00 History Latanoprost 0.005% 1 drop OU DAILY 11/01/16 06/12/21 05/17/19 08:00 History Januvia 100 mg PO DAILY 05/19/19 06/12/21 Unknown History Pepcid 20 mg PO BID 05/19/19 06/12/21 Unknown History Rosuvastatin (Nf) 40 mg PO DAILY 05/19/19 06/12/21 Unknown History Aspirin [[place] Aspirin EC] 81 mg PO QDAY 06/12/21 06/12/21 Unknown History Ezetimibe [Zetia] 10 mg PO DAILY 06/12/21 06/12/21 Unknown History Metoprolol [Lopressor] 25 mg PO BID 06/12/21 06/12/21 Unknown History Sodium Zirconium Cyclosilicate 10 gm PO DAILY 06/12/21 06/12/21 Unknown History [Lokelma] Tamsulosin [Flomax] 0.4 mg PO QDAY 06/12/21 06/12/21 Unknown History amLODIPine 10 mg PO HS 06/12/21 06/12/21 Unknown History cloNIDine [Catapres] 0.1 mg PO BID 06/12/21 06/12/21 Unknown History hydrALAZINE [Apresoline TAB] 25 mg PO TID 06/12/21 06/12/21 Unknown History Active Medications Cefazolin Sodium (Cefazolin/Sterile Water 2 Gm/20 Ml Syringe) 2 gm IV PREOP NR Stop: 06/14/21 20:00 Fentanyl (Fentanyl 100 Mcg/2 Ml Inj) 100 mcg IV ONCE PRN PRN Reason: sedation for nerve block Sodium Chloride (Nacl 0.9% 1000 Ml) 1,000 mls @ 42 mls/hr IV DIRECT KARLEY Stop: 06/14/21 23:59 Midazolam HCl (Midazolam 2 Mg/2 Ml Inj) 2 mg IV PREOP NR Stop: 06/14/21 23:59 - Physical exam General appearance: no acute distress Lungs: Normal air movement Heart: Regular rate Gastrointestinal: normal Male Genitourinary: deferred Rectal Exam: deferred Extremities: normal temperature, abnormal (Nonpalpable pedal pulses bilaterally) Neurological: Other (Decreased strength in bilateral upper and lower extremities) - Brief post op/procedure progress note Date of procedure: 06/14/21 Pre-op diagnosis: Chronic renal insufficiency stage V Post-op diagnosis: same Procedure: Creation of Left Brachial Artery to Left Axillary Vein Arteriovenous Graft with 5 mm Bovine Artegraft Anesthesia: MAC, regional Surgeon: MACIE WILKINS Estimated blood loss: minimal Pathology: none Condition: stable - Disposition Condition at discharge: Good Disposition: 01 HOME / SELF CARE / HOMELESS Short Stay Discharge Plan Activity: other (No heavy lifting with left arm for 2 weeks.) Wound: open to air, keep clean and dry, other (Okay to shower and wash the left arm incisions with soap and water but do not soak in water for 2 weeks.) Follow up with: MACIE WILKINS MD [Staff Physician] - 14 Days Prescriptions: HYDROcodone/APAP 5-325 [Etoile 5/325] 1 each PO Q4HR PRN #30 tablet PRN Reason: Pain
[2021-06-14] MEDS ORDERED: ePHEDrine SULFATE 50 MG/1 ML INJ ONE (09:05)
[2021-06-14] MEDS ORDERED: rifAMPin 600 MG VIAL IV ONE (09:06)
[2021-06-14] MEDS ORDERED: HEPARIN 10,000 UNITS/10 ML VIAL IV ONE (09:08)
[2021-06-14] MEDS ORDERED: SODIUM CHLORIDE 0.9% 250 ML IVPB IV ONE (09:08)
[2021-06-14] MEDS ORDERED: SODIUM CHLORIDE 0.9% P/F 10 ML VIAL IV ONE (09:08)
[2021-06-14] MEDS ORDERED: SODIUM CHLORIDE 0.9% IRR 1,500 ML BOTTLE IR ONE (09:08)
[2021-06-14] MEDS ORDERED: SODIUM CHLORIDE 0.9% 500 ML IVPB IRRIGATION ONE (09:08)
--- NOTE | 2021-06-14 10:37 | Operative Report ---
Operative Report Operative Report: Date of procedure: 06/14/2021 Pre-operative diagnosis: Chronic Renal Insufficiency Stage V Post-operative diagnosis: Same Procedure(s): 1. Creation of Left Brachial Artery to Axillary Vein AV Graft with 5 mm Bovine Graft Artergraft Surgeon: Jude Ca MD Rn Burn: None Anesthesia: Regional/MAC EBL: Minimal Counts: Correct Complications: None Condition: Stable Findings: Successful Creation of Left Arm AV Graft with Palpable Thrill and Palpable Radial Pulse at the Completion of the Case. Specimen: None Indication: The patient is a 61-year-old male with a history of chronic renal sufficiency who was not yet on hemodialysis however it is anticipated that he will require hemodialysis within the near future. He is in need of long-term dialysis access to avoid a permacath and requires creation of an arteriovenous graft. He was given the risk, benefits, alternative procedures and consented to the procedure. Description of Procedure: Prior to being transported to the operating room the patient had a regional block of the left arm performed. After the block was performed the patient was transported to the operating room and adequately sedated. The patient's left arm was then prepped and draped in normal sterile fashion. A longitudinal incision was made on the medial aspect of the arm just proximal to the antecubital crease and carried down to the brachial artery using sharp dissection. The brachial artery was dissected out circumferentially both proximally and distally and controlled with vessel loops. A second incision was created in longitudinal fashion on the medial aspect of the arm just distal to the axillary crease and carried down to the axillary vein using sharp dissection. Axillary vein was dissected out circumferentially and controlled with a vessel loop. I then used a Edita-Wick tunneler to tunnel from the brachial artery incision to the axillary vein incision and then pulled an 5 mm bovine through the tunnel. I infused with heparinized saline to ensure that it was not twisted or kinked. I put the brachial artery vessel loops on tension controlling the flow and then created an arteriotomy using an 11 blade and Askew scissors. I beveled the graft and created an end-to-side anastomosis using 6-0 Prolene running fashion. I clamped the graft just proximal to the anastomosis and then released the vessel loops restoring flow in the brachial artery. I placed quick clot in incision to achieve hemostasis. I cut the proximal end of the graft to the appropriate length and beveled the graft in preparation for a venous anastomosis. I controlled the axillary vein a Satinsky clamp and created a venotomy using an 11 blade and Askew scissors. I created an end to side anastomosis using a 6-0 Prolene in running fashion. Prior to completing the anastomosis I flushed the graft to ensure there was no thrombus and then completed the anastamosis. I released all clamps allowing flow into the AV graft which had an excellent thrill. I packed the wound with quick clot to achieve hemostasis. I closed both wounds in 2 layers using 3-0 Vicryl in running fashion in the deep dermal layer and 4-0 Monocryl in running fashion the subcuticular layer. I dressed both wounds with Dermabond. The patient tolerated the procedure well all sponge, needle, and instrument counts were correct. The patient was taken to recovery in stable condition.
[2021-06-14 17:12] VITALS: BP 139/77
== END 2021-06-14 12:20 | disposition home or self-care (01) ==
LOC: OR 06:49
PROVIDERS: ATTEND Surgery Vascular Surgery
DX: I12.0 Hypertensive chronic kidney disease with stage 5 chronic kidney disease or end stage renal disease (principal); E11.22 Type 2 diabetes mellitus with diabetic chronic kidney disease; N18.6 End stage renal disease; E11.36 Type 2 diabetes mellitus with diabetic cataract; H40.9 Unspecified glaucoma; E11.51 Type 2 diabetes mellitus with diabetic peripheral angiopathy without gangrene; K21.9 Gastro-esophageal reflux disease without esophagitis; M19.90 Unspecified osteoarthritis, unspecified site; Z88.5 Allergy status to narcotic agent; Z86.73 Personal history of transient ischemic attack (TIA), and cerebral infarction without residual deficits; Z96.642 Presence of left artificial hip joint; Z91.81 History of falling; Z98.890 Other specified postprocedural states; Z87.891 Personal history of nicotine dependence; Z91.040 Latex allergy status; Z88.2 Allergy status to sulfonamides; Z88.8 Allergy status to other drugs, medicaments and biological substances; Z79.899 Other long term (current) drug therapy; Z79.82 Long term (current) use of aspirin
CPT/HCPCS: 36415; 36830; 64415; 80048; 82962; 85027; C1768; J0690; J1644; J2250; J2405; J2704; J3010; J3490; J7030; J7040; J7050; 64450; J7120; Q0162